=== PATIENT | male | born 1950 | race Caucasian/White ===

== ENCOUNTER 2025-04-05 10:58 | Outpatient (AMB) | payer OTHER, SELFPAY ==
--- NOTE | 2025-04-05 11:00 | MHC.PC.OV ---
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 Associate Professor Of Art History Required: No Allergies No Known Allergies Allergy (Verified 04/05/25 11:02) Medication List - Last Reviewed 04/05/25 by Tanja Hoskins MA aspirin (Adult Low Dose Aspirin) 81 mg PO DAILY hydroxyurea 1,000 mg PO DAILY naproxen sodium (Aleve) 220 mg PO ONCE PRN Tobacco use date assessed: 04/05/25 Fall risk assessment: No Falls in past year Last assessed Fall Risk: 04/05/25 Dental Screening Dental Screen Date: 04/05/25 Did you have a dental visit in the last 12 months?: Yes Did you have a dental problem in the last 6 months where you did not have access to dental care?: No Was dental information given to patient?: Patient has dentist HPI HPI Comments History of Present Illness Details 74 Y/O M with MDD, PTSD, obesity, DM 2, CKD3a, Thrombocyothemia 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 Takes Hydroxyurea, reports most recent plt 500 ; is also on ASA as a result Other: Needs dental extractions and then plates placed Exam Awake alert NAD Scleras nonicteric bilat RRR LS CTAB No edema BLE, hairless 1/2 way down lower legs to ankles Mood and affect appropriate Plan: Refer to Optho Metformin 1000mg po QPM Labs today (ordered on down time sheet as system not working) Tdap today RTO 3 months sAWV sooner PRN Total time spent caring for the patient today was 45 minutes. This includes time spent before the visit reviewing the chart, time spent during the visit, and time spent after the visit on documentation, reviewing laboratory results, diagnostic imaging, medications, performing a medically necessary evaluation, counseling on diagnoses, care coordination, ordering appropriate tests, ordering appropriate medications, review of tests performed by other providers, reporting test results with the patient, communication with other healthcare providers. [facility] Medical History (Updated 04/05/25 @ 12:34 by Pennie Olsen [facility]) Edema Swelling Arthritis Diabetes No pertinent family history Surgical History (Updated 04/05/25 @ 11:17 by Tanja Hoskins MA) Hx of colonoscopy (~2019) No pertinent past surgical history Social History (Updated 04/05/25 @ 11:17 by Tanja Hoskins MA) Household Members: Spouse Housing: House Are you a primary child care attendant school to a significant other at home: Yes Do you presently have visiting nurse or other home services: No Alcohol intake: current Alcohol intake frequency: a few times a month Patient Tobacco Use Status: Never used Tobacco e-Cigarette/Vaping Use: Never Used Second Hand Smoke Exposure: No Substance Use Type: Marijuana service: No Current occupational status: retired Current occupational exposures/hazards: No Cognitive needs: No Hearing needs: No Vision needs: Yes (wear glasses) Questionnaire PHQ-9 Over the last 2 weeks, how often have you been bothered by any of the following problems? 1. Little interest or pleasure in doing things: not at all 2. Feeling down, depressed, or hopeless: not at all 3. Trouble falling or staying asleep, or sleeping too much: not at all 4. Feeling tired or having little energy: not at all 5. Poor appetite or overeating: not at all 6. Feeling bad about yourself - or that you are a failure or have let yourself or your family down: not at all 7. Trouble concentrating on things, such as reading the newspaper or watching television: several days 8. Moving or speaking so slowly that other people could have noticed. Or the opposite - being so fidgety or restless that you have been moving around a lot more than usual: several days 9. Thoughts that you would be better off or of hurting yourself in some way: not at all Total score: 2 Depression Screening Interpretation: Negative Depression Screening Done: Yes 41060 - PHQ-9 Billing: Yes Source: Developed by Drs. Ruben Parikh, Qian Mcmahan, Del Hilton and colleagues, with an educational gretchen from [employer]. Thrive Questionnaire Date Thrive assessed: 04/05/25 I am a: Patient What is your living situation today?: I have a steady place to live Within the past 12 months, did the food you bought not last and you didn't have the money to get more?: Never true Within the past 12 months, did you worry whether your food would run out before you got money to buy more?: Never true Do you have trouble paying for medicines?: No Do you have trouble getting transportation to medical appointments?: No Do you have trouble paying your heating and electricity bill?: Yes Do you have trouble taking care of your child, family member or friend?: Yes Do you have trouble with day-to-day activities such as bathing, preparing meals, shopping, managing finances, etc.?: No Are you currently unemployed and looking for a job?: No Are you interested in more education?: No Please select the resources that you would like help with: Utilities Currently or been in a relationship where the following occur: No concerns reported THRIVE Score: 1 AUDIT C Alcohol Use Questionnaire (AUDIT-C) 1. How often do you have a drink containing alcohol?: Monthly or less 2. How many drinks containing alcohol do you have on a typical day when you are drinking?: 1 or 2 3. How often do you have six or more drinks on one occasion?: Never Total Score: 1 Score Reviewed/Action Taken: Yes GENE-7 AMB Questionnaire GENE-7 Date GENE - 7 assessed: 04/05/25 Feeling nervous, anxious, or on edge: 0 = Not at all Not being able to stop or control worryin = Not at all Worrying too much about different things: 0 = Not at all Trouble relaxin = Not at all Being so restless that it is hard to sit still: 0 = Not at all Becoming easily annoyed or irritable: 0 = Not at all Feeling afraid as if something awful might happen: 0 = Not at all Total GENE-7 score (0-4 normal; 5-9 mild; 10-14 moderate; 15-21 severe): 0 Source: Developed by Drs. Ruben Parikh, Qian Mcmahan, Del Hilton and colleagues, with an educational gretchen from [employer]. GENE-7 Assessment Billing GENE-7 Assessment Tool: GENE-7 Assessment 30710 Physical exam (Primary Care) Vital Signs: Last Vital Signs Temp 97.3 F 04/05/25 11:09 Pulse 60 04/05/25 11:09 Resp 12 04/05/25 11:09 BP 142/78 H 04/05/25 11:09 Pulse Ox 95 04/05/25 11:09 Oxygen Delivery Method Room Air 04/05/25 11:09 BMI result Body Mass Index 32.3 BMI Assessment/Plan discussion: High BMI High, discussed plan: lifestyle Tobacco/Smoking Status: Tobacco use Status Tobacco use date assessed 04/05/25 04/05/25 11:05 Patient Tobacco Use Status Never used Tobacco 04/05/25 11:17 e-Cigarette/Vaping Use Never Used 04/05/25 11:17 PHQ-9: PHQ-9 Score PHQ-9: Total score 2 04/05/25 11:41 Depression Screening Interpretation: Negative Thrive Assessment: Date of Thrive Assessment Date Thrive assessed 04/05/25 04/05/25 11:05 Currently or been in a relationship where the following occur: No concerns reported Results AMB Hemoglobin A1c AMB Hemoglobin A1c 8.7 % Last Edit by Tanja Hoskins MA on 04/05/25 11:36 Immunizations Boostrix Tdap 2.5 Lf unit-8 mcg-5 Lf/0.5 mL intramuscular syringe Performing Provider: PIPER Ma Performing Location: [facility] [place] [facility] Administered by: Tanja Hoskins MA on 04/05/25 11:41 Dose Route Admin Location Dispensed Lot Number Expiration Date [facility] Design Drafter Chief 0.5 mL IM Right Deltoid 0.5 mL [id number] 06/09/27 08181-081-36 Pulse Total Dispensed Waste 0.5 mL 0 % VIS Given Date VIS Provided VIS Publication Date 04/05/25 Single Vaccine 21 Eligibility Eligibility Date Funding Source Not [facility] Eligible 04/05/25 Private Results Reviewed Results Reviewed: Laboratory Last Values Hgb A1c (Clinic) 8.7 % (4.0-6.0) H 04/05/25 11:13 Coding Level of Care Code New Pt Level 4 (84452) Complex EM visit Add On G2211 Diagnoses Encounter to establish care Z76.89 Diabetes mellitus type 2 with complications E11.8 Stage 3a chronic kidney disease due to type 2 diabetes mellitus E11.22; N18.31 Mild episode of recurrent major depressive disorder F33.0 Major depression episode severity: mild Essential thrombocythemia D47.3 Need for Tdap vaccination Z23 Obesity (BMI 30-39.9) E66.9 Additional Codes GENE-7 Assessment Billing - GENE-7 Assessment Tool: GENE-7 Assessment 68378 ([id number]) PHQ-9 - 73395 - PHQ-9 Billing: Yes ([id number]) Assessment & Plan Assessment & Plan (1) Encounter to establish care: Code(s): Z76.89 - Persons encountering health services in other specified circumstances (2) Diabetes mellitus type 2 with complications: Code(s): E11.8 - Type 2 diabetes mellitus with unspecified complications Category: Medical (3) Stage 3a chronic kidney disease due to type 2 diabetes mellitus: Code(s): E11.22 - Type 2 diabetes mellitus with diabetic chronic kidney disease; N18.31 - Chronic kidney disease, stage 3a Category: Medical (4) MDD (major depressive disorder), recurrent episode: Code(s): F33.9 - Major depressive disorder, recurrent, unspecified Category: Medical Qualifiers: Major depression episode severity: mild Qualified Code(s): F33.0 - Major depressive disorder, recurrent, mild (5) Essential thrombocythemia: Code(s): D47.3 - Essential (hemorrhagic) thrombocythemia Category: Medical (6) Need for Tdap vaccination: Code(s): Z23 - Encounter for immunization Category: Medical (7) Obesity (BMI 30-39.9): Code(s): E66.9 - Obesity, unspecified Category: Medical Plan , Orders: Orders AMB Hemoglobin A1c Today E11.8 - Type 2 diabetes mellitus with unspecified complications, Z13.9 - Encounter for screening, unspecified TDaP Immunization Today Z23 - Encounter for immunization Referrals Ophthalmology Referral E11.8 - Type 2 diabetes mellitus with unspecified complications Medications: New metformin 1,000 mg PO DAILY 90 tabs 1RF
[2025-04-05 11:09] VITALS: BP 142/78; PULSE 60; RESP 12; TEMP 36.3; O2SAT 95; BMI 32.3
--- OUTSIDE RECORDS SUMMARY | 2025-04-05 12:30 | XMS_ITS | Clinical Summary ---
Author Organization [facility] Address [address] [place] [address] Care Team Providers Care Multi Line Claims Adjuster Name Role Phone Zachery Dowling MD Primary Care Provider [phone] Allergies No known active allergies Medications Medication Sig Dispensed Refills Start Date End Date Status aspirin EC 81 MG tablet Take 1 tablet (81 mg total) by mouth daily. 0 Active hydroxyurea (HYDREA) 500 MG capsule TAKE 2 CAPSULES BY MOUTH DAILY WITH FOOD ON SATURDAY,SATURDAY, SATURDAY. ONLY TAKE 1 TAKE ONE CAPSULE ON SATURDAY, SATURDAY,SAT AND SATURDAY 128 capsule 11 06/22/2024 Active Active Problems Problem Noted Date Diagnosed Date Essential thrombocytosis 11/23/2019 Thrombocytosis 11/09/2019 Social History Tobacco Use Types Packs/Day Years Used Date Smoking Tobacco: Former Cigarettes 1 20 Pipe Smokeless Tobacco: Never Alcohol Use Standard Drinks/Week Comments Yes 0 (1 standard drink = 0.6 oz pur e alcohol) Sex and Gender Information Value Date Recorded Sex Assigned at Not on file Gender Identity Not on file Sexual Orientation Not on file Job Start Date Occupation Industry Not on file Not on file Not on file Last Filed Vital Signs Vital Sign Reading Time Taken Comments Blood Pressure 137/67 07/28/2024 3:43 PM EDT Pulse 64 07/28/2024 3:43 PM EDT Temperature 36.7 C (98 F) 07/28/2024 3:43 PM EDT Respiratory Rate - - Oxygen Saturation 100% 07/28/2024 3:43 PM EDT Inhaled Oxygen Concentration - - Weight 109.8 kg (242 lb) 07/28/2024 3:43 PM EDT Height 188 cm (6' 2 ) 07/28/2024 3:43 PM EDT Body Mass Index 31.07 07/28/2024 3:43 PM EDT Plan of Treatment Health Maintenance Due Date Last Done Comments Hepatitis C Screening 1950 COVID-19 Vaccine (#1) 1957 Pneumococcal Vaccine (1 of 2 - PCV) 1958 Depression Screening 1964 BMI Counseling 1970 Preventative Health Evaluation 1970 DTap / Tdap / Td (1 - Tdap) 1971 Shingrix-Zoster Vaccine (1 of 2) 1971 Colon Cancer Screening (Colonoscopy) 1997 Fall Risk Assessment 2017 Influenza Vaccine (Season Ended) 2025 RSV Adult > 60+ Yrs or Pregn ant (1 - 1-dose 75+ series) 2027 Hepatitis B Vaccines Aged Out No long er eligible based on patient's age to complete this topic RSV Ped < 20 months Aged Out No longe r eligible based on patient's age to complete this topic Care Teams Multi Line Claims Adjuster Relationship Specialty Start Date End Date Zachery Dowling MD [address] [place] [phone] PCP - General Internal Medicine 11/09/19
== END 2025-04-05 11:43 | disposition home or self-care (01) ==
LOC: HO.HMCFM 10:58
PROVIDERS: PCP Nurse Practitioner Family; Visit Provider Nurse Practitioner Family
DX: Z76.89 Persons encountering health services in other specified circumstances (principal); E11.8 Type 2 diabetes mellitus with unspecified complications; E11.22 Type 2 diabetes mellitus with diabetic chronic kidney disease; N18.31 Chronic kidney disease, stage 3a; F33.0 Major depressive disorder, recurrent, mild; D47.3 Essential (hemorrhagic) thrombocythemia; Z23 Encounter for immunization; E66.9 Obesity, unspecified; Z13.9 Encounter for screening, unspecified

== ENCOUNTER → 2025-04-05 10:58 | Outpatient (BNVA) | payer OTHER, SELFPAY | PROVIDERS: PCP Nurse Practitioner Family; Visit Provider Nurse Practitioner Family | DX: E11.22 Type 2 diabetes mellitus with diabetic chronic kidney disease (principal); F43.10 Post-traumatic stress disorder, unspecified; F33.0 Major depressive disorder, recurrent, mild; N18.31 Chronic kidney disease, stage 3a; D47.3 Essential (hemorrhagic) thrombocythemia; E66.9 Obesity, unspecified; Z23 Encounter for immunization; Z76.89 Persons encountering health services in other specified circumstances; Z79.84 Long term (current) use of oral hypoglycemic drugs | CPT/HCPCS: 83036; 90471; 90715; 96127; 99202 ==

== ENCOUNTER 2025-04-05 11:53 | Outpatient (REF) | payer OTHER, SELFPAY ==
[2025-04-05 14:11] LABS: Alanine Aminotransferase 25 U/L (0-40); Albumin Level 4.5 g/dL (3.5-5.0); Anion Gap 10 (12-20); Aspartate Amino Transferase 29 U/L (5-37); Bilirubin Total 1.4 mg/dL (0.0-1.0); Blood Urea Nitrogen 17 mg/dL (9-16); Calcium 9.2 mg/dL (8.4-10.2); Carbon Dioxide 25 mmol/L (22-29); Chloride 107 mmol/L (96-108); Estimated Glomerular Filt Rate > 60; Glucose Random 170 mg/dL (60-115); Potassium 4.2 mmol/L (3.3-5.1); Sodium 138 mmol/L (135-145); Triglycerides 158 mg/dL (<150)
[2025-04-05 14:12] LABS: Alkaline Phosphatase 53 U/L (39-117); Cholesterol 133 mg/dL (<200); HDL Cholesterol 31 mg/dL (>40); LDL Cholesterol Calculated 71 mg/dL (<100)
[2025-04-05 14:31] LABS: Thyroid Stimulating Hormone 2.68 uIU/mL (0.32-4.0)
[2025-04-05 14:35] LABS: Prostate Specific Antigen 0.61 ng/mL (<0.05-4.0); Vitamin B12 829 pg/mL (200-900)
[2025-04-05 19:50] LABS: Creatinine Urine 245.64 mg/dL; Microalbum/Creatinine Ratio Ur 5.6 ug/mg cr (<30)
== END 2025-04-05 11:54 | disposition home or self-care (01) ==
LOC: HO.WFDLDS 11:53
PROVIDERS: Visit Provider Nurse Practitioner Family
DX: E11.8 Type 2 diabetes mellitus with unspecified complications (principal); Z13.9 Encounter for screening, unspecified
CPT/HCPCS: 36415; 80053; 80061; 82043; 82570; 82607; 84153; 84443

== ENCOUNTER 2025-06-09 09:55 | Outpatient (REF) | payer OTHER, SELFPAY ==
--- OUTSIDE RECORDS SUMMARY | 2025-06-09 11:35 | XMS_ITS ---
Author Name [facility] Organization Unknown Care Team Organization Name Specialty Phone Email Start Date End Da te [facility] Shahram Rondon Primary Care 08/21/202205/14
[2025-06-09 14:33] LABS: Hematocrit 37.7 % (42.0-52.0); Hemoglobin 12.4 g/dl (14.0-18.0); Mean Corpuscular HGB Conc 32.9 g/dl (31.0-36.0); Mean Corpuscular Hemoglobin 34.2 pg (27.0-33.0); Mean Corpuscular Volume 103.9 fL (80.0-98.0); NRBC Abs Auto 0.020 X10*3/uL (0.0-0.012); NRBC Pct Auto 0.2 /100WBC (0.0-0.2); Platelet Count 511 X10*3/uL (160-400); Red Blood Count 3.63 X10*6/uL (4.60-5.80); White Blood Count 12.4 X10*3/uL (4.8-10.8)
[2025-06-09 15:12] LABS: Alanine Aminotransferase 30 U/L (0-40); Albumin Level 4.6 g/dL (3.5-5.0); Alkaline Phosphatase 71 U/L (39-117); Anion Gap 12 (12-20); Aspartate Amino Transferase 41 U/L (5-37); Blood Urea Nitrogen 16 mg/dL (9-16); Calcium 9.2 mg/dL (8.4-10.2); Carbon Dioxide 25 mmol/L (22-29); Chloride 104 mmol/L (96-108); Estimated Glomerular Filt Rate 58; Potassium 4.8 mmol/L (3.3-5.1); Sodium 136 mmol/L (135-145); Total Protein 7.6 g/dL (6.5-8.0)
== END 2025-06-09 09:56 | disposition home or self-care (01) ==
LOC: HO.WFDLDS 09:55
PROVIDERS: PCP Nurse Practitioner Family; Visit Provider Nurse Practitioner Family
DX: Z01.818 Encounter for other preprocedural examination (principal); E11.8 Type 2 diabetes mellitus with unspecified complications; D47.3 Essential (hemorrhagic) thrombocythemia; Z79.82 Long term (current) use of aspirin; Z79.84 Long term (current) use of oral hypoglycemic drugs; Z79.2 Long term (current) use of antibiotics; Z79.899 Other long term (current) drug therapy
CPT/HCPCS: 36415; 80053; 85027; 99212

== ENCOUNTER 2025-06-09 09:55 | Outpatient (AMB) | payer OTHER, SELFPAY ==
--- OUTSIDE RECORDS SUMMARY | 2024-07-28 15:40 | XMS_ITS | Encounter Summary ---
Author Organization [employer] [facility] Address [address] [place] [address] Care Team Providers Care Airport Traffic Controller Name Role Phone Zachery Dowling MD Primary Care Provider [phone] Encounter Details Date Type Department Care Team (Late st Contact Info) Description 07/28/2024 3:40 PM EDT Hospital Encounter TH HISTORIC ENCOUNTERS EASTERN CONVERSION ONLY Shahram Rondon MD [address] [place] [phone] Social History Tobacco Use Types Packs/Day [...] hemoglobin 14.9 with MCV 96, and platelet ,000. He underwent a bone marrow aspirate and [...] increased the Hydrea dose to 1000 mg Dvygtq-Mifryacva-Bbmoee and 500 mg the other days and he tolerated therapy well without side effects. He is a garcia and reports frequent easy bleeding on aspirin 81 mg daily. A CBC on 03/24/2020 showed a WBC 11.0 with ANC 7.7, hemoglobin 13.8 with MCV 103, and platelet wxqbe781,000. A CBC on 05/30/2020 showed a WBC 9.3 with ANC 6.4, hemoglobin 14.3 with MCV 109, and platelet count 572,000. A CBC on 09/19/2020 showed a WBC 10.8 with ANC 7.5, hemoglobin 13.9 with MCV 108, and platelet hmbip094,000. We increased the Hydrea dose to 1000 [...] hemoglobin 14.2 with MCV 107, and platelet nqueu458,000. A CBC on 07/04/2021 showed a WBC 12.0 with ANC 8.9, hemoglobin 14.2 with MCV 111, and platelet piqqv491,000. A CBC on 10/27/2021 showed a WBC [...] Care Team (Late st Contact Info) Description 07/27/2025 1:30 PM EDT Office Visit [facility] Hematology Oncology [address] [place] [phone] Shahram Rondon MD [address] [place] [phone] documented as of this encounter Procedures Procedure Name Priority Date/Time Associated Diagnosis Comments ..MISCELLANEOUS REFERENCE LAB TEST 07/28/2024 documented in this encounter Results * Miscellaneous reference lab test (07/28/2024) us Provider Onbase LAB BLOOD ORDERABLES Final Re sult documented in this encounter Visit Diagnoses Not on filedocumented in this encounter Care Teams Airport Traffic Controller Relationship Specialty Start Date End Date Zachery Dowling MD [address] [place] [phone] PCP - General Internal Medicine 02/26/18 documented as of this encounter
--- NOTE | 2025-06-09 09:57 | A.OFFPC_ITS ---
Vital Signs 06/09/25 10:03 Height 6 ft 1 in Weight 241 lb BMI 31.8 BP 138/74 Blood Pressure Location Lt brachial Position Sitting Respiration 12 Pulse 71 Pulse Source Pulse Oximeter Temp 97.2 F Temp Source Oral Pulse Oximetry (%) 99 Oxygen Delivery Method Room Air Intake Visit Reasons: pre op dental surgery Intake Note: Pre op for dental surgery Hand Spinner Required: No Allergies No Known Allergies Allergy (Verified 06/09/25 09:58) Medication List - Last Reconciled 06/09/25 by DANNIELLE Ma- aspirin (Adult Low Dose Aspirin) 81 mg PO DAILY hydroxyurea 1,000 mg PO DAILY metformin 1,000 mg PO DAILY naproxen sodium (Aleve) 220 mg PO ONCE PRN penicillin V potassium 500 mg PO BID Tobacco use date assessed: 06/09/25 Fall risk assessment: No Falls in past year Last assessed Fall Risk: 06/09/25 Dental Screening Dental Screen Date: 06/09/25 Did you have a dental visit in the last 12 months?: Yes Did you have a dental problem in the last 6 months where you did not have access to dental care?: No Was dental information given to patient?: Patient has dentist HPI HPI Comments History of Present Illness Details 74 Y/O M with MDD, PTSD, obesity, DM 2, CKD3a, Thrombocyothemia 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 Surgery Type: Dental plates and extractions Anesthesia Type: local Surgeon: Jerryurgedonna [facility] Date: TBD based on clearance Any past surgical procedures: Y Any complications from anesthesia or in post-op period: N ASA or NSAID Use: ASA and Naproxen Current smoker: N Alcohol use: N Drug use: N METs: > 4 climb flight of stairs, golf, walk, yardwork Medical history: Asthma N COPD N Obesity bmi 31.8 Diabetes Y IN < 6 weeks, unstable angina, CHF, severe valve disease N Testing CBC/CMP as below Dm2 Metformin 1000mg causing GI upset, taking as directed, A1c 8.7% 03/2025 Thrombocyothemia - Dr Alcon Cline, visit q 3 months, last March 2025. Takes Hydroxyurea, reports most recent plt 500 ; is also on ASA as a result Exam Awake alert NAD Scleras nonicteric bilat RRR LS CTAB No edema BLE, hairless 1/2 way down lower legs to ankles Mood and affect appropriate Plan: Patient is medically cleared to proceed w/ dental work. Dental form completed, to be faxed back along w/ my note and labs. He should cont to take his ASA, limit Naproxen use; hold Metformin day of surgery and do not resume until normal food intake and hydration status. Currently on Pen VK for dental infection, for 10 days, he should complete this before proceeding. RTO as scheduled, sooner as needed. Total time spent caring for the patient today was 40 minutes. This includes time spent before the visit reviewing the chart, time spent during the visit, and time spent after the visit on documentation, reviewing laboratory results, diagnostic imaging, medications, performing a medically necessary evaluation, counseling on diagnoses, care coordination, ordering appropriate tests, ordering appropriate medications, review of tests performed by other providers, reporting test results with the patient, communication with other healthcare providers. [facility] Medical History (Updated 05/05/25 @ 07:06 by Pennie Olsen, [facility]) Arthritis Diabetes Edema No pertinent family history Swelling Surgical History (Updated 04/05/25 @ 11:17 by Tanja Hoskins MA) Hx of colonoscopy (~2018) No pertinent past surgical history Social History (Updated 04/05/25 @ 11:17 by Tanja Hoskins MA) Household Members: Spouse Both parents involved: No Caregiver staying overnight: No Housing: House Are you a primary medical care evaluation specialist to a significant other at home: Yes Do you presently have visiting nurse or other home services: No 75 years or older and lives alone: No Alcohol intake: current Alcohol intake frequency: a few times a month Patient Tobacco Use Status: Never used Tobacco e-Cigarette/Vaping Use: Never Used Second Hand Smoke Exposure: No Substance Use Type: Marijuana service: No Current occupational status: retired Current occupational exposures/hazards: No Cognitive needs: No Hearing needs: No Vision needs: Yes (wear glasses) Questionnaire Thrive Questionnaire Date Thrive assessed: 04/05/25 I am a: Patient What is your living situation today?: I have a steady place to live Within the past 12 months, did the food you bought not last and you didn't have the money to get more?: Never true Within the past 12 months, did you worry whether your food would run out before you got money to buy more?: Never true Do you have trouble paying for medicines?: No Do you have trouble getting transportation to medical appointments?: No Do you have trouble paying your heating and electricity bill?: Yes Do you have trouble taking care of your child, family member or friend?: Yes Do you have trouble with day-to-day activities such as bathing, preparing meals, shopping, managing finances, etc.?: No Are you currently unemployed and looking for a job?: No Are you interested in more education?: No Please select the resources that you would like help with: Utilities Currently or been in a relationship where the following occur: No concerns reported THRIVE Score: 1 GENE-7 AMB Questionnaire GENE-7 Date GENE - 7 assessed: 04/05/25 Source: Developed by Drs. Ruben Parikh, Qian Mcmahan, Del Hilton and colleagues, with an educational gretchen from [employer]. Physical exam (Primary Care) Vital Signs: Last Vital Signs Temp 97.2 F 06/09/25 10:03 Pulse 71 06/09/25 10:03 Resp 12 06/09/25 10:03 BP 138/74 06/09/25 10:03 Pulse Ox 99 06/09/25 10:03 Oxygen Delivery Method Room Air 06/09/25 10:03 BMI result Body Mass Index 31.8 Tobacco/Smoking Status: Tobacco use Status Tobacco use date assessed 06/09/25 06/09/25 10:00 Patient Tobacco Use Status Never used Tobacco 06/09/25 10:00 e-Cigarette/Vaping Use Never Used 06/09/25 10:00 Thrive Assessment: Date of Thrive Assessment Date Thrive assessed 04/05/25 06/09/25 10:00 Currently or been in a relationship where the following occur: No concerns reported Results Reviewed Results Reviewed: RUN: 06/09/25 1633 PAGE 1 [facility] [address] [place] [id number] Public Utilities Sales Representative: Jeremy Cotto M.D. Specimen Inquiry Name: Randell Edwards Age/Sex: 74/M : 1950 Unit#: [id number] Attend Dr: Pennie Olsen [facility] Re06/09/25 Status: REG REF Location: [facility] Disch: SPEC : [id number] EDWIGE: 06/09/25 STATUS: COMP REQ : [id number] RECD: 06/09/[address] [facility] [address]: Pennie Olsen [facility] COMP: 06/09/25 ENTERED: 06/09/[address] [facility] [address]: ORDERED: CBC No Diff Test Result Flag Reference WBC 12.4 H 4.8-10.8 X10*3/uL RBC 3.63 L 4.60-5.80 X10*6/uL HGB 12.4 L 14.0-18.0 g/dl HCT 37.7 L 42.0-52.0 % MCV 103.9 H 80.0-98.0 fL MCH 34.2 H 27.0-33.0 pg MCHC 32.9 31.0-36.0 g/dl RDW 14.8 11.0-16.0 % PLT 511 H 160-400 X10*3/uL MPV 10.1 9.4-12.4 fL NRBC Pct Auto 0.2 0.0-0.2 /100WBC NRBC Abs Auto 0.020 H 0.0-0.012 X10*3/uL RUN: 06/09/25 3263 PAGE 1 [facility] [address] [place] [id number] Public Utilities Sales Representative: Jeremy Cotto M.D. Specimen Inquiry Name: Randell Edwards Age/Sex: 74/M : 1950 Unit#: [id number] Attend Dr: Pennie Olsen Re06/09/25 Status: REG REF Location: [facility] Disch: SPEC : [id number] EDWIGE: 06/09/25 STATUS: COMP REQ : [id number] RECD: 06/09/[address]: Pennie Olsen COMP: 06/09/25-1511 ENTERED: 06/09/[address]: ORDERED: CMP Test Result Flag Reference Sodium 136 135-145 mmol/L Potassium 4.8 3.3-5.1 mmol/L CL 104 96-108 mmol/L CO2 25 22-29 mmol/L Gap 12 12-20 BUN 16 9-16 mg/dL Creat 1.22 0.5-1.4 mg/dL eGFR 58 Chronic Kidney Disease: Estimated GFR < 60 mL/min/1.73m2 Severe Kidney Disease: Estimated GFR < 15 mL/min/1.73m2 Glucose, Random 149 H 60-115 mg/dL CA 9.2 8.4-10.2 mg/dL Total Bili 1.6 H 0.0-1.0 mg/dL AST (GOT) 41 H 5-37 U/L ALT (GPT) 30 0-40 U/L Protein, Total 7.6 6.5-8.0 g/dL Alb 4.6 3.5-5.0 g/dL Alk Phos 71 39-117 U/L Coding Level of Care Code Est Pt Level 5 (07289) Complex EM visit Add On G2211 Diagnoses Encounter for preoperative dental examination Z01.818 Diabetes mellitus type 2 with complications E11.8 Essential thrombocythemia D47.3 Assessment & Plan Assessment & Plan (1) Encounter for preoperative dental examination: Code(s): Z01.818 - Encounter for other preprocedural examination Plan: Patient is medically cleared to proceed w/ dental work. Dental form completed, to be faxed back along w/ my note and labs. He should cont to take his ASA, limit Naproxen use; hold Metformin day of surgery and do not resume until normal food intake and hydration status. Currently on Pen VK for dental infection, for 10 days, he should complete this before proceeding. (2) Diabetes mellitus type 2 with complications: Code(s): E11.8 - Type 2 diabetes mellitus with unspecified complications Category: Medical (3) Essential thrombocythemia: Code(s): D47.3 - Essential (hemorrhagic) thrombocythemia Category: Medical Plan . Orders: Orders Complete Blood Count no Diff Today D47.3 - Essential (hemorrhagic) thrombocythemia, E11.8 - Type 2 diabetes mellitus with unspecified complications, Z01.818 - Encounter for other preprocedural examination Comprehensive Met. Panel Today D47.3 - Essential (hemorrhagic) thrombocythemia, E11.8 - Type 2 diabetes mellitus with unspecified complications, Z01.818 - Encounter for other preprocedural examination Medications: New metformin ER (Glucophage XR) 1,000 mg (2 x 500 mg) PO DAILY 180 tabs 0RF Discontinued metformin Discontinued Reason: Doctor's Order 1,000 mg PO DAILY 90 tabs 1RF
[2025-06-09 10:03] VITALS: BP 138/74; PULSE 71; RESP 12; TEMP 36.2; O2SAT 99; BMI 31.8
--- OUTSIDE RECORDS SUMMARY | 2025-06-09 10:38 | XMS_ITS | Clinical Summary ---
Author Organization [facility] [place] [address] Phone Care Team Providers Care Egg Grader Name Role Phone Zachery Dowling MD Primary Care Provider [phone] Allergies No known active allergies Medications naproxen sodium 220 mg capsule Take 1 Tab by mouth every morning. Active aspirin 81 mg EC tablet Take 1 tablet (81 mg total) by mouth daily. Active hydroxyurea (HYDREA) 500 mg capsule TAKE 2 CAPSULES BY MOUTH DAILY WITH FOOD ON SATURDAY,, SATURDAY. ONLY TAKE 1 TAKE ONE CAPSULE ON SATURDAY, SATURDAY,SAT AND Saturday06/22/2024 Active Active Problems Problem Noted Date Diagnosed Date Essential thrombocytosis (CMS/HCC V24, [facility] V 28) 11/23/2019 Thrombocytosis 03/12/2018 Resolved Problems Problem Noted Date Diagnosed Date Resolved Date Diabetic neuropathy (CMS/HCC V24, CMS/HCC V28) 04/04/2018 09/18/2024 Tick bite 04/04/2018 09/18/2024 Overview (09/07/2024): history DM (diabetes mellitus), type 2 with neurological complications (CMS/HCC V24, CMS/HCC V28) 03/12/2018 09/18/2024 Neutrophilia 03/12/2018 09/18/2024 Polycythemia 03/12/2018 09/18/2024 Encounters Date Type Department Care Team Description 04/27/2025 1:15 PM EDT Office Visit [facility] Hematology Oncology [address] [place] [address] Shahram Rondon MD Essential thrombocytosis ([facility] V24, [facility] V28) (Primary Dx) from Last 3 Months Medical History Medical History Date Comments Polycythemia 03/12/2018 DX:Polycythemia Neutrophilia 03/12/2018 DX:Neutrophilia Thrombocytosis 03/12/2018 DX:Thrombocytosi s DM (diabetes mellitus), type 2 with neurological complications ([facility] V24, [facility] V28) 03/12/2018 DX:DM (diabetes mellitus), t ype 2 with neurological complications (HCC) Diabetic neuropathy ([facility] V24, [facility] V28) 04/04/2018 DX:Diabetic neuropathy (HCC) Tick bite 04/04/2018 DX:Tick bite; CO MMENT: history Diabetic neuropathy ([facility] V24, [facility] V28) 04/04/2018 DX:Diabetic neuropathy (HCC) DM (diabetes mellitus), type 2 with neurological complications ([facility] V24, [facility] V28) 03/12/2018 DX:DM (diabetes mellitus), t ype 2 with neurological complications (HCC) Polycythemia 03/12/2018 DX:Polycythemia Neutrophilia 03/12/2018 DX:Neutrophilia Thrombocytosis 03/12/2018 DX:Thrombocytosi s Tick bite 04/04/2018 DX:Tick bite Social History Tobacco Use Types Packs/Day Years Used Date Smoking Tobacco: Former Cigarettes Smokeless Tobacco: Never Tobacco Cessation:Counseling Given: Not Answered Alcohol Use Standard Drinks/Week Comments Yes 0 (1 standard drink = 0.6 oz pur e alcohol) Sex and Gender Information Value Date Recorded Sex Assigned at Not on file Legal Sex Male 10:39 AM EST Gender Identity Not on file Sexual Orientation Not on file Obstetrics History Last Filed Vital Signs Vital Sign Reading Time Taken Comments Blood Pressure 135/71 04/27/2025 1:09 PM EDT Pulse 72 04/27/2025 1:09 PM EDT Temperature 36.3 C (97.3 F) 04/27/2025 1:09 PM EDT Respiratory Rate - - Oxygen Saturation 99% 04/27/2025 1:09 PM EDT Inhaled Oxygen Concentration - - Weight 110 kg (243 lb) 04/27/2025 1:09 PM EDT Height 188 cm (6' 2 ) 10/28/2024 2:49 PM EST Body Mass Index 31.2 10/28/2024 2:49 PM EST Plan of Treatment Upcoming Encounters Date Type Department Care Team (Late st Contact Info) Description 07/27/2025 1:30 PM EDT Office Visit [facility] Hematology Oncology [address] [place] [address] Shahram Rondon MD [address] [place] [address] Health Maintenance Due Date Last Done Comments Zoster Vaccines (1 of 2) 1971 Pneumococcal Vaccine: 50+ Years (1 of 1 - PCV) 2002 Abdominal Aortic Aneurysm (AAA) Screen 09/11/2022 Cholesterol Screening (Lipid Panel) 09/11/2022 Colorectal Cancer Screening: Colonoscopy 09/11/2022 Falls Risk Assessment 09/11/2022 Hepatitis C Screening 09/11/2022 Medicare Annual Wellness Visit 09/11/2022 Social Influencers of Health Screening 09/11/2022 COVID-19 Vaccine (4 - 2023-2 5 season) 2024 10/02/2021, 02/17/2021, 01/27/2021 Depression Screening 10/14/2024 Influenza Vaccine (#1) 2025 RSV Immunization Adult Patients (1 - 1-dose 75+ series) 2027 DTaP,Tdap,and Td Vaccines (2 - Td or Tdap) 04/05/2035 04/05/2025 HIB Vaccines Aged Out No longer eligi ble based on patient's age to complete this topic HPV Vaccines Aged Out No longer eligi ble based on patient's age to complete this topic Hepatitis A Vaccines Aged Out No long er eligible based on patient's age to complete this topic Hepatitis B Vaccines Aged Out No long er eligible based on patient's age to complete this topic IPV Vaccines Aged Out No longer eligi ble based on patient's age to complete this topic MMR Vaccines Aged Out No longer eligi ble based on patient's age to complete this topic Meningococcal ACWY Vaccine Aged Out N o longer eligible based on patient's age to complete this topic Meningococcal B Vaccine Aged Out No l onger eligible based on patient's age to complete this topic RSV Immunization Patients Under 20 months Aged Out No longer eligible b ased on patient's age to complete this topic Varicella Vaccines Aged Out No longer eligible based on patient's age to complete this topic Procedures Procedure Name Priority Date/Time Associated Diagnosis Comments CBC WITH AUTO DIFFERENTIAL Routine 04/26/2025 8:43 AM EDT Essential thrombocytosis ([facility] V24, [facility] V28) CBC AND DIFFERENTIAL Routine 04/26/2025 8:43 AM EDT Essential thrombocytosis ([facility] V24, [facility] V28) from Last 3 Months Results * (ABNORMAL) CBC auto differential (04/26/2025 8:43 AM EDT) WBC 9.5 4.8 - 10.8 K/mcL LAB HEMETOLOGY METHOD 04/26/2025 11:45 AM [facility] RBC 3.70(L) 4.50 - 5.50 M/mcL LAB HEMETOLOGY METHOD 04/26/2025 11:45 AM [facility] Hemoglobin 12.5(L) 13.5 - 17.5 g/dL LAB HEMETOLOGY METHOD 04/26/2025 11:45 AM [facility] Hematocrit 37.7(L) 42.0 - 54.0 % LAB HEMETOLOGY METHOD 04/26/2025 11:45 AM [facility] MCV 103.0(H) 79.0 - 98.0 FL LAB HEMETOLOGY METHOD 04/26/2025 11:45 AM [facility] MCH 34.2(H) 27.0 - 32.0 pcg LAB HEMETOLOGY METHOD 04/26/2025 11:45 AM [facility] MCHC 33.2 32.0 - 37.0 g/dL LAB HEMETOLOGY METHOD 04/26/2025 11:45 AM [facility] RDW 14.5 11.0 - 15.0 % LAB HEMETOLOGY METHOD 04/26/2025 11:45 AM [facility] Platelets 484(H) 130 - 400 K/mcL LAB HEMETOLOGY METHOD 04/26/2025 11:45 AM [facility] MPV 10.3 7.0 - 11.0 FL LAB HEMETOLOGY METHOD 04/26/2025 11:45 AM [facility] NRBC 0.0 <1.0 % LAB HEMETOLOGY METHOD 04/26/2025 11:45 AM [facility] NRBC Absolute 0.00 <0.10 K/mcL LAB HEMETOLOGY METHOD 04/26/2025 11:45 AM [facility] Neutrophils Relative 69.8 % LAB HEMETOLOGY METHOD 04/26/2025 11:45 AM [facility] Lymphocytes Relative 15.5 % LAB HEMETOLOGY METHOD 04/26/2025 11:45 AM [facility] Monocytes Relative 7.5 % LAB HEMETOLOGY METHOD 04/26/2025 11:45 AM [facility] Eosinophils Relative 3.7 % LAB HEMETOLOGY METHOD 04/26/2025 11:45 AM [facility] Basophils Relative 1.5 % LAB HEMETOLOGY METHOD 04/26/2025 11:45 AM [facility] Immature Granulocytes Relative 2.0 % LAB HEMETOLOGY METHOD 04/26/2025 11:45 AM [facility] Neutrophils Absolute 6.62 1.50 - 7.00 K/mcL LAB HEMETOLOGY METHOD 04/26/2025 11:45 AM [facility] Lymphocytes Absolute 1.47 1.00 - 5.00 K/mcL LAB HEMETOLOGY METHOD 04/26/2025 11:45 AM [facility] Monocytes Absolute 0.71 0.20 - 1.00 K/mcL LAB HEMETOLOGY METHOD 04/26/2025 11:45 AM EDT [facility] Eosinophils Absolute 0.35 0.00 - 0.50 K/[facility] LAB HEMETOLOGY METHOD 04/26/2025 11:45 AM EDT [facility] Basophils Absolute 0.14 0.00 - 0.20 K/[facility] LAB HEMETOLOGY METHOD 04/26/2025 11:45 AM EDT [facility] Immature Granulocytes Absolute 0.19(H) 0.00 - 0.03 K/[facility] LAB HEMETOLOGY METHOD 04/26/2025 11:45 AM EDT [facility] Blood Venous blood specimen / Unknown Venipuncture / Unknown 04/26/2025 8:43 AM EDT 04/26/2025 11:29 AM EDT us Shahram Rondon MD LAB BLOOD ORDERABLES Final Result [facility] [address] [address], from Last 3 Months Insurance MEDICAID - [place] [facility] MEDICARE [employer]AGE Care Teams Egg Grader Relationship Specialty Start Date End Date Zachery Dowling MD [address] [place] [phone] PCP - General Internal Medicine 02/26/18
--- OUTSIDE RECORDS SUMMARY | 2025-06-09 10:38 | XMS_ITS | Clinical Summary ---
Author Organization [facility] Address [address] [place] [address] Care Team Providers Care Administrative Services Director Name Role Phone Zachery Dowling MD Primary Care Provider [phone] Allergies No known active allergies Medications Medication [...] 1997 Fall Risk Assessment 2017 Influenza Vaccine (#1) 2025 RSV Adult > 60+ Yrs or Pregn ant (1 - 1-dose 75+ series) 2027 Hepatitis B Vaccines Aged Out No long er eligible based on patient's age to complete this topic RSV Ped < 20 months Aged Out No longe r eligible based on patient's age to complete this topic Care Teams Administrative Services Director Relationship Specialty Start Date End Date Zachery Dowling MD [address] [place] [phone] PCP - General Internal Medicine 11/09/19
== END 2025-06-09 10:20 | disposition home or self-care (01) ==
LOC: HO.HMCFM 09:56
PROVIDERS: PCP Nurse Practitioner Family; Visit Provider Nurse Practitioner Family
DX: E11.8 Type 2 diabetes mellitus with unspecified complications (principal); D47.3 Essential (hemorrhagic) thrombocythemia; Z01.818 Encounter for other preprocedural examination

== ENCOUNTER 2025-07-02 07:58 | Outpatient (AMB) | payer OTHER, SELFPAY ==
--- OUTSIDE RECORDS SUMMARY | 2024-07-28 15:40 | XMS_ITS | Encounter Summary ---
Author Organization [employer] [facility] Address [address] [place] [address] Care Team Providers Care Section Crews Activities Clerk Name Role Phone Zachery Dowling MD Primary Care Provider [phone] Encounter Details Date Type Department Care Team (Late st Contact Info) Description 07/28/2024 3:40 PM EDT Hospital Encounter TH HISTORIC ENCOUNTERS EASTERN CONVERSION ONLY Shahram Rondon MD [address] [place] [phone] Social History Tobacco Use Types Packs/Day [...] hemoglobin 14.9 with MCV 96, and platelet ywurx508,000. He underwent a bone marrow aspirate and [...] increased the Hydrea dose to 1000 mg Jzswev-Skdpgjnku-Vgbbmp and 500 mg the other days and he tolerated therapy well without side effects. He is a garcia and reports frequent easy bleeding on aspirin 81 mg daily. A CBC on 03/24/2020 showed a WBC 11.0 with ANC 7.7, hemoglobin 13.8 with MCV 103, and platelet hjbcy929,000. A CBC on 05/30/2020 showed a WBC 9.3 with ANC 6.4, hemoglobin 14.3 with MCV 109, and platelet count 572,000. A CBC on 09/19/2020 showed a WBC 10.8 with ANC 7.5, hemoglobin 13.9 with MCV 108, and platelet eocwo901,000. We increased the Hydrea dose to 1000 [...] hemoglobin 14.2 with MCV 111, and platelet kclix943,000. A CBC on 10/27/2021 showed a WBC [...] Description 07/27/2025 1:30 PM EDT Office Visit [facility] Hematology Oncology [address] [place] [phone] Shahram Rondon MD [address] [place] [phone] documented as of this encounter Procedures Procedure Name Priority Date/Time Associated Diagnosis Comments ..MISCELLANEOUS REFERENCE LAB TEST 07/28/2024 documented in this encounter Results * Miscellaneous reference lab test (07/28/2024) us Provider Onbase LAB BLOOD ORDERABLES Final Re sult documented in this encounter Visit Diagnoses Not on filedocumented in this encounter Care Teams Section Crews Activities Clerk Relationship Specialty Start Date End Date Zachery Dowling MD [address] [place] [phone] PCP - General Internal Medicine 02/26/18 documented as of this encounter
--- NOTE | 2025-07-02 08:01 | AM.OFFVISMDC ---
Intake Vital Signs 07/02/25 08:06 07/02/25 08:32 Height 6 ft 1 in Weight 244 lb BMI 32.2 BP 154/78 H 138/68 Blood Pressure Location Lt brachial Lt brachial Position Sitting Sitting Respiration 13 Pulse 63 Pulse Source Pulse Oximeter Temp 97.1 F Temp Source Oral Pulse Oximetry (%) 99 Oxygen Delivery Method Room Air Intake Visit Reasons: CPE Intake Note: AWV. Patient is still having diarrhea since the med change. Panel Assembler Required: No Allergies No Known Allergies Allergy (Verified 07/02/25 08:17) Medication List - Last Reconciled 07/02/25 by Pennie Olsen, [employer]ICATION PLANT OPERATOR- aspirin (Adult Low Dose Aspirin) 81 mg PO DAILY hydroxyurea 1,000 mg PO DAILY metformin ER (Glucophage XR) 1,000 mg (2 x 500 mg) PO DAILY naproxen sodium (Aleve) 220 mg PO ONCE PRN Do you need a note to return to daycare/school/sports/work: No HPI HPI Comments History of Present Illness Details Here today for AWV. The Medicare Annual Wellness Visit (AWV) is a yearly appointment with a health professional to identify health risks and help reduce them and to create or update a personalized prevention plan. During a Medicare AWV, health professionals should also review any current opioid prescriptions, detect any cognitive impairment, and establish or update medical and family history. 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 Colon: 2019 Vaccines: Tdap 03/2025; Declined Flu, Shingles, Pneumococcal. AAA screen: NA EKG: NSR DIABETIC EYE EXAM 07/21/24 DOCUMENTS NONPROLIFERATIVE DIABETIC RETINOPATHY WITH MACULAR EDEMA BILAT, CATARACTS BILAT (CONSIDER SURGERY) [place] of Care: Heme Dr Alcon Cline next appt Optho - referral placed to Dr Painter for DM Eye exam Visual Acuity: wears glasses, eye exam 06/2025 Hearing Screening: partner says hes [place]; doesnt bother him. Wants hearing test; referral placed to [facility] [place] [facility] ACP: does not have HCP, form given today, wants it to be his dtr; MOLST completed today, DNR w/ no resus. efforts. Dietary/Nutrition/Exercise Edu provided: Y During the course of the visit the patient was educated and counseled about appropriate screening and preventative services. Patient instructions were provided to the patient in written or electronic format. I have reviewed and verified the above information. History of Present Illness The patient is a 74 year old male presenting with an annual wellness visit and management of multiple chronic conditions. 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 Non-proliferative Diabetic Retinopathy: - Past diabetic eye exam in July 2024. Reports had one done 3 weeks ago, will get a copy. - Cataracts identified; recently received new glasses. Obesity: - BMI at 32.2. Major Depressive Disorder and PTSD: - Known diagnosis; no current medication. Thrombocythemia: - Managed on aspirin and hydroxyurea. - Heme MD Back pain w/ BLE sciaitica for years. - Morning pain relieved with movement and warmth; rare medication use Aleve once per week -Hot showers Hearing loss: - Hearing issues noted by partner; referral for audiology planned. Social History - Wakes early, typically between 2:00 to 3:00 AM. - Manages daily activities and outings according to his health status. - Works for a few hours daily with limitations. 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 Health Maintenance - Brand Mgr visit completed recently; new glasses issued. - Future A1c check planned; reminder of a previous check on the of last month. - Cardiovascular status favorable with normal EKG findings. - Hearing exam referral made to the audiology department. - Flu shot offered but declined by the patient. - Shingles and pneumococcal vaccines offered but declined. Review of Systems - Gastrointestinal: Reports diarrhea related to medication. - Musculoskeletal: Reports occasional morning back pain. - Hematological: Reports management for thrombocythemia. - Ophthalmic: Reports early-stage cataracts; recent eye exam noted. - Neurological: Denies prosthetic issues, no general neuropathy. - Auditory: Reports difficulty in hearing from partners? observations. Physical Exam General: Well developed, well nourished, in no acute distress. Appears stated age. Head: Normocephalic, atraumatic. Eyes: Pupils are equal, round and reactive to light and accommodation. Conjunctivae are clear. Vision grossly normal. Ears: TMs clear AU, EACS WNL. Some wax present, ears to be flushed. Nose: Patent, without discharge. Neck: Supple, no adenopathy or thyromegaly. Breast: Edu on SBE Lungs: Clear to auscultation bilaterally. No rales, rhonchi or wheeze noted. Good air flow in all gary. Heart: Regular rate and rhythm. No murmurs, click, rubs or gallops are noted. EKG shows normal sinus rhythm. Abdomen: Bowel sounds present in all quadrants. The abdomen is soft, nontender, with no masses or organomegaly noted. Ventral hernia present : Deferred. Reviewed KARLY & recommendations Pulses: Peripheral pulses are equal and palpable bilaterally. Extremities: No clubbing, cyanosis nor edema is noted. Gouty/arthritic changes to bilat great toes. Normal monofilament bilat, abnormal vibratory sensation bilat L>R, hairless 1/2 way down, + varicose veins, skin intact, trace edema L>R Neurologic: Gait and station normal. Cranial Nerves 2-12 intact. Motor strength grossly symmetrical and intact. No sensory loss. Balance normal. Skin: No rashes, ulcers, or lesions noted. Turgor is good. Skin color is good. Hair and nails are without abnormalities. Several moles and age spots noted on trunk. Psych: Normal eye contact, affect and mood appropriate, and normal interactions. Patient is alert and appropriate to context. Discussion Notes I reviewed the patient's management of type 2 diabetes with chronic kidney disease stage 3A, emphasizing the importance of frequent monitoring of renal function and the adjustment of metformin timing to manage associated diarrhea. I discussed the results of the recent EKG and ensured that he understands the significance of normal findings. We explored the need for continued ophthalmology follow-up in light of recent cataract development and a new prescription for eyeglasses. I informed the patient of the need for auditory checks and placed a referral to audiology. I broached the advantages of flu and pneumococcal vaccinations, which the patient declined. We addressed the patient's infrequent use of pain medications for morning back pain and his partner's observations regarding potential hearing loss. We also reviewed plans for potential further diagnostics if his conditions change. Patient was given time to ask questions. All questions were answered to their satisfaction. Assessment and Plan 1. Type 2 Diabetes Mellitus with Chronic Kidney Disease Stage 3A & Neuropathy - Continue metformin; monitor A1c and renal function. - Address diarrhea by taking Metformn w/ food, if intolerable consider med change at next visit. - Foot checks - Declined Statin. on ASA 2. Non-proliferative Diabetic Retinopathy/Cataracts - Annual ophthalmology follow-up scheduled. 3. Obesity - Lifestyle modification advised. 4. Major Depressive Disorder and PTSD - Non-medication management 5. Thrombocythemia - Maintain current hematology-directed regimen. 6. Back pain w/ sciatica - Mechanical relief and rare analgesics. 7. Hearing loss - Audiology referral - Cerumen removed today Patient Instructions - Schedule and attend appointments for upcoming lab work and A1c check. - Keep an eye on blood sugar levels and report any significant changes. - Regularly visit the aerospace products sales engineer for eye health and new glasses. - Stay active to help manage weight and back pain. - Monitor hearing and follow up with audiology to manage hearing issues. - Report any worsening symptoms of diarrhea or side effects of medications immediately. - RTO 3-4 mo w/ labs for routine fu sooner as needed. Consent Patient was informed and verbally consented to the use of an ambient scribe for clinic documentation during this visit. An additional 40 minutes was spent addressing the problem(s) noted at todays visit. This includes time spent before the visit reviewing the chart, time spent during the visit, and time spent after the visit on documentation reviewing laboratory results, diagnostic imaging, medications, performing a medically necessary evaluation, counseling on diagnoses, care coordination, ordering appropriate tests, ordering appropriate medications, review of tests performed by other providers, reporting test results with the patient, communication with other healthcare providers. 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: Yes Do you presently have visiting nurse or other home services: No 75 years or older and lives alone: No Alcohol intake: current Alcohol intake frequency: a few times a month Patient Tobacco Use Status: Never used Tobacco e-Cigarette/Vaping Use: Never Used Second Hand Smoke Exposure: No Substance Use Type: Marijuana service: No Current occupational status: retired Current occupational exposures/hazards: No Cognitive needs: No Hearing needs: No Vision needs: Yes (wear glasses) Questionnaire Medicare Wellness Checkup What [age]?: [age] What gender do you identify with?: male During the past 4 weeks, has your physical & emotional health limited your social activities with family, friends, neighbors, or groups?: not at all During the past 4 weeks, how much bodily pain have you generally had?: no pain During the past 4 weeks, was someone available to help you if you needed & wanted help?: yes, as much as I wanted During the past 4 weeks, what was the hardest physical activity you could do for at least 2 minutes?: moderate Can you get to places out of walking distance without help? (For eg., can you travel alone on buses, taxis or drive your car?): Yes Can you go shopping for groceries or clothes without someone's help?: Yes Can you prepare your own meals?: Yes Can you do your housework without help?: Yes Because of any health problems, do you need the help of another person with your personal care needs such as eating, bathing, dressing or getting around the house?: No Can you handle your own money without help?: Yes During the past 4 weeks, how would you rate your health in general?: excellent During the past 4 weeks how have things been going for you?: very well; could hardly better Are you having difficulties driving your car?: no Do you always fasten your seat belt when you are in a car?: yes, usually During past 4 weeks, have you been bothered by the following: never: Falling or dizzy when standing up, Sexual problems?, Trouble eating well?, Teeth or denture problems?, Problems using the telephone? and Tiredness or fatigue? Have you fallen 2 or more times in the past year?: No Are you afraid of falling?: No Are you a smoker?: no During the past 4 weeks, how many drinks of wine, beer, or other alcoholic beverages did you have?: no alcohol at all Do you exercise for about 20 minutes 3 or more times a week?: yes, some of the time Have you been given information to help with the following?: no: Hazards in your house that might hurt you? and no: Keeping track of your medications? How often do you have trouble taking medicines the way you have been told to take them?: I always take medicine as prescribed How confident are you that you can control & manage most of your health problems?: very confident What is your race?: White Activity of Daily Living Bathing - sponge bath, tub bath or shower: receives no assistance (gets in/out by self, if usual bathing means Dressing - getting clothes from closets & drawers, including inner/outer garments & fasteners.: gets clothes & gets completely dressed without help Toileting - going to the 'toilet room' for urine/bowel elimination & cleaning self/arranging clothes: goes to toilet room, cleans self, arranges clothes without help Transfer: moves in & out of bed and chair without help (may use support object) Continence: controls urination/bowel movements completely by self Feeding: feeds self without help Total Score: 0 Information obtained from: patient Using telephone: independent Traveling: independent Shopping: independent Preparing meals: independent Housework: independent Taking medicine: independent Managing money: independent PHQ-9 Over the last 2 weeks, how often have you been bothered by any of the following problems? 1. Little interest or pleasure in doing things: not at all 2. Feeling down, depressed, or hopeless: not at all 3. Trouble falling or staying asleep, or sleeping too much: not at all 4. Feeling tired or having little energy: not at all 5. Poor appetite or overeating: not at all 6. Feeling bad about yourself - or that you are a failure or have let yourself or your family down: not at all 7. Trouble concentrating on things, such as reading the newspaper or watching television: not at all 8. Moving or speaking so slowly that other people could have noticed. Or the opposite - being so fidgety or restless that you have been moving around a lot more than usual: not at all 9. Thoughts that you would be better off or of hurting yourself in some way: not at all Total score: 0 Depression Screening Interpretation: Negative Depression Screening Done: Yes 71354 - PHQ-9 Billing: Yes Source: Developed by Drs. Ruben Parikh, Qian Mcmahan, Del Hilton and colleagues, with an educational gretchen from [employer]. Physical Exam Vital Signs: Last Vital Signs Temp 97.1 F 07/02/25 08:06 Pulse 63 07/02/25 08:06 Resp 13 07/02/25 08:06 BP 138/68 07/02/25 08:32 Pulse Ox 99 07/02/25 08:06 Oxygen Delivery Method Room Air 07/02/25 08:06 BMI result Body Mass Index 32.2 Office Procedures AMB Patient Education/Training AMB Patient Education/Training Documentation: [id number] Separately and distinctly, 8 minutes face to face counseling on risk factor reduction related to diet, exercise, weight management, sexual health, immunization, injury prevention. Medical necessity includes review of VS, BMI, current medications, age/race/gender to identify risks. Patient was provided with a wellness handout at the time of discharge. Cerumen Removal From which ear canal was the cerumen removed: bilateral Removal: irrigation Notes: patient tolerated procedure well, no complications and ear canal clear [id number] Irrigation/Lavage Diabetic Foot Exam [id number] - Diabetic Foot Exam EKG [id number], Complete Vision Screening Right Eye: 20/20 Left Eye: 20/20 Bilateral: 20/20 Color: Pass Corrected: Pass (wearing glasses) [id number] - Vision Screening Results Reviewed Results Reviewed: Assessment & Plan Assessment & Plan (1) Encounter for subsequent annual wellness visit (AWV) in Medicare patient: Onset Date: ~07/02/25 Code(s): Z00.00 - Encounter for general adult medical examination without abnormal findings (2) ACP (advance care planning): Code(s): Z71.89 - Other specified counseling (3) Nonproliferative diabetic retinopathy: Comment: dm eye exam 07/21/24 bilat + macular edema, cataracts [facility] Code(s): E11.3299 - Type 2 diabetes mellitus with mild nonproliferative diabetic retinopathy without macular edema, unspecified eye (4) MDD (major depressive disorder), recurrent episode: Code(s): F33.9 - Major depressive disorder, recurrent, unspecified Qualifiers: Major depression episode severity: mild Qualified Code(s): F33.0 - Major depressive disorder, recurrent, mild (5) Diabetes mellitus type 2 with complications: Code(s): E11.8 - Type 2 diabetes mellitus with unspecified complications (6) Obesity (BMI 30-39.9): Code(s): E66.9 - Obesity, unspecified (7) Stage 3a chronic kidney disease due to type 2 diabetes mellitus: Code(s): E11.22 - Type 2 diabetes mellitus with diabetic chronic kidney disease; N18.31 - Chronic kidney disease, stage 3a (8) Essential thrombocythemia: Code(s): D47.3 - Essential (hemorrhagic) thrombocythemia (9) Hearing loss: Code(s): H91.90 - Unspecified hearing loss, unspecified ear Qualifiers: Hearing loss type: unspecified Laterality: bilateral Qualified Code(s): H91.93 - Unspecified hearing loss, bilateral (10) Bilateral sciatica: Code(s): M54.31 - Sciatica, right side; M54.32 - Sciatica, left side (11) Diabetic neuropathy: Code(s): E11.40 - Type 2 diabetes mellitus with diabetic neuropathy, unspecified Qualifiers: Diabetes mellitus type: type 2 Diabetes mellitus complication detail: diabetic mononeuropathy Qualified Code(s): E11.41 - Type 2 diabetes mellitus with diabetic mononeuropathy (12) PVD (peripheral vascular disease): Code(s): I73.9 - Peripheral vascular disease, unspecified (13) DNR (do not resuscitate): Code(s): Z66 - Do not resuscitate (14) Physician orders for life-sustaining treatment (POLST) form indicates patient wish for to-mky-[id number] status: Onset Date: ~07/02/25 Code(s): Z66 - Do not resuscitate (15) Influenza vaccination declined: Code(s): Z28.21 - Immunization not carried out because of patient refusal (16) Pneumococcal vaccination declined: Code(s): Z28.21 - Immunization not carried out because of patient refusal (17) Herpes zoster vaccination declined: Code(s): Z28.21 - Immunization not carried out because of patient refusal (18) Immunization counseling: Code(s): Z71.85 - Encounter for immunization safety counseling (19) Impacted cerumen, bilateral: Code(s): H61.23 - Impacted cerumen, bilateral Plan . Orders: Orders Lipid Panel 4 Months E11.22 - Type 2 diabetes mellitus with diabetic chronic kidney disease, E11.8 - Type 2 diabetes mellitus with unspecified complications, N18.31 - Chronic kidney disease, stage 3a Hemoglobin A1c 4 Months E11.22 - Type 2 diabetes mellitus with diabetic chronic kidney disease, E11.8 - Type 2 diabetes mellitus with unspecified complications, N18.31 - Chronic kidney disease, stage 3a Comprehensive Met. Panel 4 Months E11.22 - Type 2 diabetes mellitus with diabetic chronic kidney disease, E11.8 - Type 2 diabetes mellitus with unspecified complications, N18.31 - Chronic kidney disease, stage 3a Microalbumin, Random (w Creat) 4 Months E11.22 - Type 2 diabetes mellitus with diabetic chronic kidney disease, E11.8 - Type 2 diabetes mellitus with unspecified complications, N18.31 - Chronic kidney disease, stage 3a Referrals Audiology Referral H91.90 - Unspecified hearing loss, unspecified ear Patient Instructions: Health screenings for men You should visit your health care provider regularly, even if you feel healthy. The purpose of these visits is to: Screen for medical issues Assess your risk for future medical problems Encourage a healthy lifestyle Update vaccinations and other preventive care services Help you get to know your provider in case of an illness Information Even if you feel fine, you should still see your provider for regular checkups. These visits can help you avoid problems in the future. For example, the only way to find out if you have high blood pressure is to have it checked regularly. High blood sugar and high cholesterol level also may not have any symptoms in the early stages. Simple blood tests can check for these conditions. There are specific times when you should see your provider or receive specific health screenings. The [place] Preventive Services Task Force publishes a list of recommended screenings. Below are screening guidelines for men ages 40 to 64. BLOOD PRESSURE SCREENING Have your blood pressure checked at least once every year. Watch for blood pressure screenings in your area. Ask your provider if you can stop in to have your blood pressure checked. Ask your provider if you need your blood pressure checked more often if: You have diabetes, heart disease, kidney problems, or are overweight or have certain other health conditions You have a first-degree relative with high blood pressure You are Black Your blood pressure top number is from 120 to 129 mm Hg, or the bottom number is from 70 to 79 mm Hg If the top number is 130 mm Hg or greater or the bottom number is 80 mm Hg or greater, this is considered stage 1 hypertension. Schedule an appointment with your provider to learn how you can lower your blood pressure. Effects of age on blood pressure CHOLESTEROL SCREENING Cholesterol screening should begin at age 35 for men with no known risk factors for coronary heart disease. Repeat cholesterol screening should take place: Every 5 years for men with normal cholesterol levels More often if changes occur in lifestyle (including weight gain and diet) More often if you have diabetes, heart disease, kidney problems, or certain other conditions COLORECTAL CANCER SCREENING If you are under age 45, talk to your provider about getting screened. You may need to be screened if you have a strong family history of colon cancer or polyps. Screening may also be considered if you have risk factors such as a history of inflammatory bowel disease or polyps. If you are age 45 to 75, you should be screened for colorectal cancer. There are several screening tests available: A stool-based fecal occult blood (gFOBT) or fecal immunochemical test (FIT) every year A stool sDNA test every 1 to 3 years Flexible sigmoidoscopy every 5 years or every 10 years with stool testing FIT done every year CT colonography (virtual colonoscopy) every 5 years Colonoscopy every 10 years You may need a colonoscopy more often if you have risk factors for colorectal cancer, such as: Ulcerative colitis A personal or family history of colorectal cancer A history of growths in your colon called adenomatous polyps DENTAL EXAM Go to the dentist once or twice every year for an exam and cleaning. Your dentist will evaluate if you have a need for more frequent visits. DIABETES SCREENING All adults who do not have risk factors for diabetes should be screened starting at age 35 and repeated every 3 years. If you have other risk factors for diabetes, such as a first degree relative with diabetes, overweight or obesity, high blood pressure, prediabetes, or a history of heart disease, you may be tested more often. If you are overweight and have other risk factors, such as high blood pressure and are planning to become , screening is recommended. EYE EXAM Have an eye exam every 2 to 4 years ages 40 to 54 and every 1 to 3 years ages 55 to 64. Your provider may recommend more frequent eye exams if you have vision problems or glaucoma risk. Have an eye exam that includes an examination of your retina (back of your eye) at least every year if you have diabetes. IMMUNIZATIONS Commonly needed vaccines include: Flu shot: get one every year COVID-19 vaccine: ask your provider what is best for you Tetanus-diphtheria and acellular pertussis (Tdap) vaccine: have as one of your tetanus-diphtheria vaccines if you did not receive it as an adolescent Tetanus-diphtheria: have a booster (or Tdap) every 10 years Varicella vaccine: receive 2 doses if you never had chickenpox or the varicella vaccine and were born in 1980 or after Hepatitis B vaccine: receive 2, 3, or 4 doses, depending on your exact circumstances, if you did not receive these as a child or adolescent, until age 59 Shingles (herpes zoster) vaccine: at or after age 50 Ask your provider if you should receive other immunizations, especially if you have certain medical conditions, such as diabetes or are at increased risk for some diseases such as pneumonia. INFECTIOUS DISEASE SCREENING Screening for hepatitis C: all adults ages 18 to 79 should get a one-time test for hepatitis C. Screening for human immunodeficiency virus (HIV): all people ages 15 to 65 should get a one-time test for HIV. Depending on your lifestyle and medical history, you may need to be screened for infections such as syphilis, chlamydia, and other infections. LUNG CANCER SCREENING You should have an annual screening for lung cancer with low-dose computed tomography (LDCT) if: You are age 50 to 80 years AND You have a 20 pack-year smoking history AND You currently smoke or have quit within the past 15 years OSTEOPOROSIS SCREENING If you are age 50 to 64 and have risk factors for osteoporosis, you should discuss screening with your provider. Risk factors can include long-term steroid use, low body weight, smoking, heavy alcohol use, having a fracture after age 50, or a family history of hip fracture or osteoporosis. Osteoporosis PHYSICAL EXAM All adults should visit their provider from time to time, even if they are healthy. The purpose of these visits is to: Screen for diseases Assess risk of future medical problems Encourage a healthy lifestyle Update vaccinations and other preventive care services Maintain a relationship with a provider in case of an illness Your height, weight, and body mass index (BMI) should be checked at every exam. During your exam, your provider may ask you about: Depression and anxiety Diet and exercise Alcohol and tobacco use Safety, such as use of seat belts and smoke detectors Your medicines and risk for interactions PROSTATE CANCER SCREENING If you're 55 through 69 years old, before having the test, talk to your provider about the pros and cons of having a PSA test. Ask about: Whether screening decreases your chance of dying from prostate cancer. Whether there is any harm from prostate cancer screening, such as side effects from testing or overtreatment of cancer when discovered. Whether you have a higher risk of prostate cancer than others. If you are age 55 or younger, screening is not generally recommended. You should talk with your provider about if you have a higher risk for prostate cancer. Risk factors include: Having a family history of prostate cancer (especially a brother or father) Being If you choose to be tested, the PSA blood test is repeated over time (yearly or less often), though the best frequency is not known. Prostate examinations are no longer routinely done on men with no symptoms. Prostate cancer SKIN EXAM Your provider may check your skin for signs of skin cancer, especially if you're at high risk. People at high risk include those who have had skin cancer before, have close relatives with skin cancer, or have a weakened immune system. TESTICULAR EXAM The [place] Preventive Services Task Force (USPSTF) now recommends against performing testicular self-exams. Doing testicular self-exams has been shown to have little to no benefit. Quality Reporting (2019) Adult ([facility] 138//) Smoking risk assessment performed?: Yes Patient Tobacco Use Status: Never used Tobacco Depression screening performed: Yes Screen Results: Yes Negative screen Systolic BP not done?: No Diastolic BP not done?: No BMI screening not done: No BMI High - Follow Up: Yes High-plan Sexual Activity Screening ([facility] 153) Sexually active?: No Immunizations ([facility] 147, 117) Annual Influenza Vaccine: Yes Measles Antibody Test: No Mumps Antibody Test: No Rubella Antibody Test: No Varicella Antibody Test: No Anti Hepatitis A IgG Antigen test: No Anti Hepatitis B Virus Surface Ab test: No Fall Risk Screening ([facility] 139) Last assessed Fall Risk: 07/02/25 Fall risk assessment: No Falls in past year Dementia Assessment ([facility] 149) Cognitive assessment recorded: Yes Assessment of cognition with standardized tool: Yes Depression/Bipolar (159/160/161/177) PHQ-9: Total score: 0 Ophthalmol:Cataracts Visual Acuity (133) Visual acuity exam performed: Yes (see results) Coding Level of Care Code Medicare Subsequent (G0439) Est Pt Level 5 (29171) Diagnoses Encounter for subsequent annual wellness visit (AWV) in Medicare patient Z00.00 ACP (advance care planning) Z71.89 Nonproliferative diabetic retinopathy E11.3299 Mild episode of recurrent major depressive disorder F33.0 Major depression episode severity: mild Diabetes mellitus type 2 with complications E11.8 Obesity (BMI 30-39.9) E66.9 Stage 3a chronic kidney disease due to type 2 diabetes mellitus E11.22; N18.31 Essential thrombocythemia D47.3 Bilateral hearing loss, unspecified hearing loss type H91.93 Hearing loss type: unspecified Laterality: bilateral Bilateral sciatica M54.31; M54.32 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.41 Diabetes mellitus type: type 2 Diabetes mellitus complication detail: diabetic mononeuropathy PVD (peripheral vascular disease) I73.9 DNR (do not resuscitate) Z66 Physician orders for life-sustaining treatment (POLST) form indicates patient wish for gi-jju-cbawbmghbuh status Z66 Influenza vaccination declined Z28.21 Pneumococcal vaccination declined Z28.21 Herpes zoster vaccination declined Z28.21 Immunization counseling Z71.85 Impacted cerumen, bilateral H61.23 CPT Codes Advance Care Planning - Time spent: 16-45 minutes ([id number]) Office Procedure - CPT: 67084-Lwh Irrigation/Lavage ([id number]) Diabetic Foot Exam - CPT: G9226 - Diabetic Foot Exam ([id number]) EKG - CPT: 98695-Cogbdkycfnuluwmsx, Complete ([id number]) Vision Screening - Vision Screenin - Vision Screening ([id number]) Additional Codes PHQ-9 - 06859 - PHQ-9 Billing: Yes ([id number]) Advance Care Planning Advance Care Planning discussion: Exists, not on file Date of discussion: 07/02/25 Who was present: self Forms completed: Health Care Proxy, MOLST and Living will Time spent: 16-45 minutes Actual minutes spent: 16
--- OUTSIDE RECORDS SUMMARY | 2025-07-02 08:02 | XMS_ITS | Clinical Summary ---
Author Organization [facility] [place] [address] Phone Care Team Providers Care Cut Off Man Name Role Phone Zachery Dowling MD Primary Care Provider [phone] Allergies No known active allergies Medications naproxen [...] Date Diagnosed Date Essential thrombocytosis (CMS/HCC V24, [facility] V 28) 11/23/2019 Thrombocytosis 03/12/2018 Resolved Problems Problem Noted Date Diagnosed Date Resolved Date Diabetic neuropathy (CMS/HCC V24, CMS/HCC V28) 04/04/2018 09/18/2024 Tick bite 04/04/2018 09/18/2024 Overview (09/07/2024): history DM (diabetes mellitus), type 2 with neurological complications (CMS/HCC V24, CMS/HCC V28) 03/12/2018 09/18/2024 Neutrophilia 03/12/2018 09/18/2024 Polycythemia 03/12/2018 09/18/2024 Encounters Date Type Department Care Team Description 04/27/2025 1:15 PM EDT Office Visit [facility] Hematology Oncology [address] [place] [address] Shahram Rondon MD Essential thrombocytosis ([facility] V24, [facility] V28) (Primary Dx) from Last 3 Months Medical History Medical History Date Comments Polycythemia 03/12/2018 DX:Polycythemia Neutrophilia 03/12/2018 DX:Neutrophilia Thrombocytosis 03/12/2018 DX:Thrombocytosi s DM (diabetes mellitus), type 2 with neurological complications ([facility] V24, [facility] V28) 03/12/2018 DX:DM (diabetes mellitus), t ype 2 with neurological complications (HCC) Diabetic neuropathy ([facility] V24, [facility] V28) 04/04/2018 DX:Diabetic neuropathy (HCC) Tick bite 04/04/2018 DX:Tick bite; CO MMENT: history Diabetic neuropathy ([facility] V24, [facility] V28) 04/04/2018 DX:Diabetic neuropathy (HCC) DM (diabetes mellitus), type 2 with neurological complications ([facility] V24, [facility] V28) 03/12/2018 DX:DM (diabetes mellitus), t ype [...] Description 07/27/2025 1:30 PM EDT Office Visit [facility] Hematology Oncology [address] [place] [address] Shahram Rondon MD [address] [place] [address] Health Maintenance Due Date Last Done Comments Zoster Vaccines (1 of 2) 1971 Pneumococcal Vaccine: 50+ Years (1 of 1 - PCV) 2002 Abdominal Aortic Aneurysm (AAA) Screen 09/11/2022 Cholesterol Screening (Lipid Panel) 09/11/2022 Colorectal Cancer Screening: Colonoscopy 09/11/2022 Falls Risk Assessment 09/11/2022 Hepatitis C Screening 09/11/2022 Medicare Annual Wellness Visit 09/11/2022 Social Influencers of Health Screening 09/11/2022 Depression Screening 10/14/2024 COVID-19 Vaccine (4 - 2024-2 6 season) 2025 10/02/2021, 02/17/2021, 01/27/2021 Influenza Vaccine (#1) 2025 RSV Immunization Adult [...] Routine 04/26/2025 8:43 AM EDT Essential thrombocytosis ([facility] V24, [facility] V28) CBC AND DIFFERENTIAL Routine 04/26/2025 8:43 AM EDT Essential thrombocytosis ([facility] V24, [facility] V28) from Last 3 Months Results * (ABNORMAL) CBC auto differential (04/26/2025 8:43 AM EDT) WBC 9.5 4.8 - 10.8 K/mcL LAB HEMETOLOGY METHOD 04/26/2025 11:45 AM [facility] RBC 3.70(L) 4.50 - 5.50 M/mcL LAB HEMETOLOGY METHOD 04/26/2025 11:45 AM [facility] Hemoglobin 12.5(L) 13.5 - 17.5 g/dL LAB HEMETOLOGY METHOD 04/26/2025 11:45 AM [facility] Hematocrit 37.7(L) 42.0 - 54.0 % LAB HEMETOLOGY METHOD 04/26/2025 11:45 AM [facility] MCV 103.0(H) 79.0 - 98.0 FL LAB HEMETOLOGY METHOD 04/26/2025 11:45 AM [facility] MCH 34.2(H) 27.0 - 32.0 pcg LAB HEMETOLOGY METHOD 04/26/2025 11:45 AM [facility] MCHC 33.2 32.0 - 37.0 g/dL LAB HEMETOLOGY METHOD 04/26/2025 11:45 AM [facility] RDW 14.5 11.0 - 15.0 % LAB HEMETOLOGY METHOD 04/26/2025 11:45 AM [facility] Platelets 484(H) 130 - 400 K/mcL LAB HEMETOLOGY METHOD 04/26/2025 11:45 AM [facility] MPV 10.3 7.0 - 11.0 FL LAB HEMETOLOGY METHOD 04/26/2025 11:45 AM [facility] NRBC 0.0 <1.0 % LAB HEMETOLOGY METHOD 04/26/2025 11:45 AM [facility] NRBC Absolute 0.00 <0.10 K/mcL LAB HEMETOLOGY METHOD 04/26/2025 11:45 AM [facility] Neutrophils Relative 69.8 % LAB HEMETOLOGY METHOD 04/26/2025 11:45 AM [facility] Lymphocytes Relative 15.5 % LAB HEMETOLOGY METHOD 04/26/2025 11:45 AM [facility] Monocytes Relative 7.5 % LAB HEMETOLOGY METHOD 04/26/2025 11:45 AM [facility] Eosinophils Relative 3.7 % LAB HEMETOLOGY METHOD 04/26/2025 11:45 AM [facility] Basophils Relative 1.5 % LAB HEMETOLOGY METHOD 04/26/2025 11:45 AM [facility] Immature Granulocytes Relative 2.0 % LAB HEMETOLOGY METHOD 04/26/2025 11:45 AM [facility] Neutrophils Absolute 6.62 1.50 - 7.00 K/mcL LAB HEMETOLOGY METHOD 04/26/2025 11:45 AM [facility] Lymphocytes Absolute 1.47 1.00 - 5.00 K/mcL LAB HEMETOLOGY METHOD 04/26/2025 11:45 AM [facility] Monocytes Absolute 0.71 0.20 - 1.00 K/mcL LAB HEMETOLOGY METHOD 04/26/2025 11:45 AM EDT [facility] Eosinophils Absolute 0.35 0.00 - 0.50 K/[facility] LAB HEMETOLOGY METHOD 04/26/2025 11:45 AM EDT [facility] Basophils Absolute 0.14 0.00 - 0.20 K/[facility] LAB HEMETOLOGY METHOD 04/26/2025 11:45 AM EDT [facility] Immature Granulocytes Absolute 0.19(H) 0.00 - 0.03 K/[facility] LAB HEMETOLOGY METHOD 04/26/2025 11:45 AM EDT [facility] ([facility] Blood Venous blood specimen / Unknown Venipuncture / Unknown 04/26/2025 8:43 AM EDT 04/26/2025 11:29 AM EDT us Shahram Rondon MD LAB BLOOD ORDERABLES Final Result [facility] ([facility]) [facility] [address] [address], from Last 3 Months Insurance MEDICAID - [place] [facility] MEDICARE [employer]VANTAGE Care Teams Cut Off Man Relationship Specialty Start Date End Date Zachery Dowling MD [address] [place] [phone] PCP - General Internal Medicine 02/26/18
--- OUTSIDE RECORDS SUMMARY | 2025-07-02 08:02 | XMS_ITS | Clinical Summary ---
Author Organization [facility] Address [address] [place] [address] Care Team Providers Care Conventions Reservationist Name Role Phone Zachery Dowling MD Primary Care Provider [phone] Allergies No known active allergies Medications Medication [...] age to complete this topic Care Teams Conventions Reservationist Relationship Specialty Start Date End Date Zachery Dowling MD [address] [place] [phone] PCP - General Internal Medicine 11/09/19
[2025-07-02 08:06] VITALS: BP 154/78; PULSE 63; RESP 13; TEMP 36.2; O2SAT 99; BMI 32.2
[2025-07-02 08:32] VITALS: BP 138/68
== END 2025-07-02 09:00 | disposition home or self-care (01) ==
LOC: HO.HMCFM 07:59
PROVIDERS: PCP Nurse Practitioner Family; Visit Provider Nurse Practitioner Family
DX: Z00.00 Encounter for general adult medical examination without abnormal findings (principal); E11.3299 Type 2 diabetes mellitus with mild nonproliferative diabetic retinopathy without macular edema, unspecified eye; E11.8 Type 2 diabetes mellitus with unspecified complications; E11.22 Type 2 diabetes mellitus with diabetic chronic kidney disease; N18.31 Chronic kidney disease, stage 3a; D47.3 Essential (hemorrhagic) thrombocythemia; E11.41 Type 2 diabetes mellitus with diabetic mononeuropathy; F33.0 Major depressive disorder, recurrent, mild; E66.9 Obesity, unspecified; H91.93 Unspecified hearing loss, bilateral; M54.31 Sciatica, right side; H61.23 Impacted cerumen, bilateral

== ENCOUNTER → 2025-07-02 07:58 | Outpatient (BNVA) | payer OTHER, SELFPAY | PROVIDERS: PCP Nurse Practitioner Family; Visit Provider Nurse Practitioner Family | DX: Z00.00 Encounter for general adult medical examination without abnormal findings (principal); E11.22 Type 2 diabetes mellitus with diabetic chronic kidney disease; N18.31 Chronic kidney disease, stage 3a; E11.3299 Type 2 diabetes mellitus with mild nonproliferative diabetic retinopathy without macular edema, unspecified eye; E66.9 Obesity, unspecified; F90.9 Attention-deficit hyperactivity disorder, unspecified type; M54.41 Lumbago with sciatica, right side; M54.42 Lumbago with sciatica, left side; F43.10 Post-traumatic stress disorder, unspecified; F33.0 Major depressive disorder, recurrent, mild; D47.3 Essential (hemorrhagic) thrombocythemia; E11.41 Type 2 diabetes mellitus with diabetic mononeuropathy; E11.51 Type 2 diabetes mellitus with diabetic peripheral angiopathy without gangrene; H61.23 Impacted cerumen, bilateral; Z68.32 Body mass index [BMI] 32.0-32.9, adult; Z71.89 Other specified counseling; Z66 Do not resuscitate | CPT/HCPCS: 69209; 93005; 96127; 99212; 99497 ==

== ENCOUNTER 2025-10-04 13:41 | Outpatient (AMB) | payer OTHER, SELFPAY ==
--- OUTSIDE RECORDS SUMMARY | 2024-07-28 14:40 | XMS_ITS | Encounter Summary ---
Author Organization [employer] [facility] Address [address] [place] [address] Care Team Providers Care Beef Lugger Name Role Phone Zachery Dowling MD Primary Care Provider [phone] Encounter Details Date Type Department Care Team (Late st Contact Info) Description 07/28/2024 3:40 PM EDT Hospital Encounter TH HISTORIC ENCOUNTERS EASTERN CONVERSION ONLY Shahram Rondon MD [address] [place] [phone] Social History Tobacco Use Types Packs/Day Years Used Date Smoking Tobacco: Former Cigarettes Smokeless Tobacco: Never Alcohol Use Standard Drinks/Week Comments Yes 0 (1 standard drink = 0.6 oz pur e alcohol) Sex and Gender Information Value Date Recorded Sex Assigned at Not on file Legal Sex Male 10:39 AM EST Gender Identity Not on file Sexual Orientation Not on file documented as of this encounter Last Filed Vital Signs Vital Sign Reading Time Taken Comments Blood Pressure 137/67 07/28/2024 3:43 PM EDT Sit ting Left arm Pulse 64 07/28/2024 3:43 PM EDT Temperature - - Respiratory Rate - - Oxygen Saturation - - Inhaled Oxygen Concentration - - Weight 110 kg (242 lb) 07/28/2024 3:43 PM EDT Height 188 cm (6' 2 ) 07/28/2024 3:43 PM EDT Body Mass Index 31.07 07/28/2024 3:43 PM EDT documented in this encounter Progress Notes * Shahram Rondon MD - 07/28/2024 3:45 PM EDT Diagnosis/treatment: Essential thrombocytosis. He takes Hydrea 1000 mg on Saturday//Saturday/Saturday and 500 mg onother days. ?? Interval history: ?? The patient is a 73-year-old recently smoking gentleman who was referred for evaluation of a neutrophilia and thrombocytosis. ?? A CBC on 01/14/2018 showed a WBC 14.6, hemoglobin 15.6 with MCV 94, and platelet count 594,000. ?? A CBC on 02/24/2018 showed WBC 13.9 with ANC 9.0, hemoglobin 15.6 with MCV 93, and a platelet count 607,000. ?? A BCR-ABL gene mutation study on 03/12/2018 was negative. A MIRIAN-2 gene mutation study on 03/12/2018 was negative. ?? A CBC on 04/02/2018 showed a WBC of 3.8, hemoglobin 15.0 with MCV 93, and a platelet count 607,000. ?? He reports falling in 09/2017 and suffering a significant left elbow injury. He reported marked left elbow swelling which is gradually diminishing and nearly resolved. He had no pain. He had no fevers chills or sweats. He did not receive antibiotics. ?? A CBC on 07/21/2018 showed a WBC 11.0, hemoglobin 14.8 with MCV 94, and a platelet count 540,000. ?? He suffered a left dorsum of the hand laceration in late 01/2019, which developed purulent discharge. He managed the wound with topical antibacterials and the wound healed. He did not take oral antibiotics. ?? A CBC on 02/20/2019 showed a WBC 12.0 with ANC 8.4, hemoglobin 14.3 with MCV 94, and platelet count 640,000. ?? A CBC on 08/31/2019 showed a WBC 13.3 with ANC 8.9, hemoglobin 14.9 with MCV 96, and platelet ffobv784,000. He underwent a bone marrow aspirate and biopsy on 11/09/2019 and the pathology revealed essential thrombocytosis. A CBC on 11/19/2019 showed a WBC 13.1 with ANC 9.5, hemoglobin 14.4 with MCV 95, and platelet count 685,000. He tolerated Hydrea 500 mg daily well without side effects. A CBC on 01/20/2020 showed a WBC 13.5, hemoglobin 15.0 with MCV 96,and platelet count 755,000. We increased the Hydrea dose to 1000 mg Xuhnah-Qwemktkcn-Nzubgy and 500 mg the other days and he tolerated therapy well without side effects. He is a garcia and reports frequent easy bleeding on aspirin 81 mg daily. A CBC on 03/24/2020 showed a WBC 11.0 with ANC 7.7, hemoglobin 13.8 with MCV 103, and platelet psayk668,000. A CBC on 05/30/2020 showed a WBC 9.3 with ANC 6.4, hemoglobin 14.3 with MCV 109, and platelet count 572,000. A CBC on 09/19/2020 showed a WBC 10.8 with ANC 7.5, hemoglobin 13.9 with MCV 108, and platelet ,000. We increased the Hydrea dose to 1000 mg twice daily and is tolerating therapy reasonably well. He reported infrequent diarrhea. A CBC on 12/15/2020 showed a WBC 10.5 with ANC 6.5, hemoglobin 14.1 with MCV 107, and platelet count 551,000. He admitted noncompliance in 2020 with the second dose of the Hydrea as he would forget or fall asleep before his dose. He also admits noncompliance with the aspirin. A CBC on 03/27/2021 showed a WBC 11.0 with ANC 7.2, hemoglobin 14.2 with MCV 107, and platelet ,000. A CBC on 07/04/2021 showed a WBC 12.0 with ANC 8.9, hemoglobin 14.2 with MCV 111, and platelet neolh509,000. A CBC on 10/27/2021 showed a WBC 7.4 with ANC 4.8, hemoglobin 13.9 with MCV 108, and platelet count 389,000. Due to confusion about the dosing, he had been taking Hydrea dose at 1000 mg Saturday//Saturday/Saturday and 500 mg the other days. He has been tolerating therapy without side effects. A CBC on 01/29/2022 showed a WBC 10.2, hemoglobin 14.7 with MCV 106, and platelet count 693,000. A CBC on 05/01/2022 showed WBC 12.7 with ANC 8.9 and ALC 2.2, hemoglobin 13.7 with MCV 108, and platelet count 677,000. A CBC on 08/22/2022 showed WBC 10.6 with ANC 7.0 and ALC 2.1, hemoglobin 14.3 with MCV 108, and platelet count 643,000. A CBC on 12/26/2022 showed WBC 10.7 with ANC 7.4 and ALC 1.6, hemoglobin 14.5 with MCV 107, and platelet count 614,000. A CBC on 04/22/2023 showed WBC 11.6 with ANC 7.7 and ALC 2.2, hemoglobin 13.8 with MCV 107, and platelet count 635,000. A CBC on 08/26/2023 showed WBC 13.6 with ANC 9.4 and ALC 2.1, hemoglobin 13.9 with MCV 105, and platelet count 483,000. A CBC on 01/02/2024 showed WBC 9.1 with ANC 5.9 and ALC 1.9, hemoglobin 14.2 with MCV 103, and platelet count 522,000. A CBC on 04/23/2024 showed WBC 11.3 with ANC 7.7 and ALC 2.2, hemoglobin 14.1 with MCV 102, and platelet count 526,000. A CBC on 07/27/2024 showed WBC 9.0 with ANC 5.7 and ALC 2.1, hemoglobin 13.7 with MCV 107, and platelet count 517,000. ?? He denies any new symptoms. He denies B symptoms. He denies awareness of peripheral lymphadenopathy. ?? He reports that he last smoked tobacco a year prior to diagnosis. He continues to smoke marijuana. Review of systems: The remainder of a 10 point review of systems was unremarkable. Physical examination: HEENT: Sclerae anicteric, normal oropharyngeal membrane. Neck: No lymphadenopathy. Lungs: Clear to auscultation. Heart: No murmurs. Abdomen: Soft, nontender, no organomegaly or masses. Extremities: No edema. Skin: No rash. Neurologic: Normal gait. Assessment/plan: The patient is a 73-year-old gentleman who was diagnosed in 10/2019 with essential thrombocytosis. AJAK-2 gene mutation study and a BCR-ABL PCR assay were negative. ?? I discussed the risk of thrombosis and CVAs associated with essential thrombocytosis. I prescribed hydroxyurea 500 mg daily with a goal to reduce the platelet count below 450,000. I discussed potential adverse effects of hydroxyurea, including mouth sores, nausea, diarrhea, and skin ulcers. I instru cted him to start aspirin 81 mg daily. A CBC in early 01/2020 showed a stable but persistently elevated platelet count. I instructed him toincrease the Hydrea to 1000 mg daily on Saturday and Saturday and 500 mg daily on the other 4days. He tolerated therapy well without side effects. The platelet count initially trended down andon therapy but milly in 09/2020. I instructed him to increase the Hydrea to 500 mg twice daily. The p latelet count stabilized. He admitted noncompliance in 2020 with the second dose of the Hydrea as he would forget or fall asleep before his dose. He also admitted noncompliance with the aspirin. I instructed him on the importance of taking the Hydrea as prescribed and restarting aspirin 81 mg daily. He became confused about his regimen in early 2021. He has been taking Hydrea 1000 mg Saturday//Saturday/Saturday and 500 mg on other days. The platelet count milly to the 600,000 range. Due to the frequent confusion and noncompliance, I instructed him to continue the same regimen. The plateletcount has decreased on therapy. We will consider increasing Hydrea back to 1000 mg daily if the platelet count progresses.. He reports compliance with aspirin 81 mg daily. This encounter is of high risk. The patient has essential thrombocytosis, which is a life-threatening condition. He remains on anticancer therapy with Hydrea chemotherapy, which carries a risk of significant morbidity and mortality. documented in this encounter Plan of Treatment Upcoming Encounters Date Type Department Care Team (Late st Contact Info) Description 10/26/2025 1:30 PM EST Office Visit [facility] Hematology Oncology [address] [place] [phone] Shahram Rondon MD [address] [place] [phone] documented as of this encounter Procedures Procedure Name Priority Date/Time Associated Diagnosis Comments ..MISCELLANEOUS REFERENCE LAB TEST 07/28/2024 documented in this encounter Results * Miscellaneous reference lab test (07/28/2024) us Provider Onbase LAB BLOOD ORDERABLES Final Re sult documented in this encounter Visit Diagnoses Not on filedocumented in this encounter Care Teams Beef Lugger Relationship Specialty Start Date End Date Zachery Dowling MD [address] [place] [phone] PCP - General Internal Medicine 02/26/18 documented as of this encounter
--- NOTE | 2025-10-04 13:45 | A.OFFPC_ITS ---
Vital Signs 10/04/25 13:53 Height 6 ft 1 in Weight 246 lb 6 oz BMI 32.5 BP 138/78 Blood Pressure Location Rt brachial Position Sitting Respiration 13 Pulse 56 Pulse Source Pulse Oximeter Temp 97.1 F Temp Source Oral Pulse Oximetry (%) 99 Oxygen Delivery Method Room Air Intake Visit Reasons: 3-4 mo routine fu labs 1 week before Intake Note: Routine follow up Cable Tool Driller Required: No Allergies No Known Allergies Allergy (Verified 10/04/25 13:45) Medication List - Last Reconciled 10/04/25 by DANNIELLE Ma- aspirin (Adult Low Dose Aspirin) 81 mg PO DAILY hydroxyurea 1,000 mg PO DAILY metformin ER 1,000 mg (2 x 500 mg) PO DAILY naproxen sodium (Aleve) 220 mg PO ONCE PRN Tobacco use date assessed: 10/04/25 Fall risk assessment: No Falls in past year Last assessed Fall Risk: 10/04/25 Dental Screening Dental Screen Date: 10/04/25 Did you have a dental visit in the last 12 months?: Yes Did you have a dental problem in the last 6 months where you did not have access to dental care?: No Was dental information given to patient?: Patient has dentist HPI HPI Comments History of Present Illness Details 74 Y/O M with MDD, PTSD, obesity, DM 2, CKD3a, Thrombocyothemia, nonproliferative DM retinopathy SurgHx: Y FHx: Y 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 AAA screen: NA EKG: NSR DIABETIC EYE EXAM 04/2025 DOCUMENTS NONPROLIFERATIVE DIABETIC RETINOPATHY WITH MACULAR EDEMA BILAT, CATARACTS BILAT (CONSIDER SURGERY) [place] of Care: Heme Dr Alcon Cline next appt Optho Dr Painter for DM Eye exam History of Present Illness The patient is a 74 year old male presenting for a routine followup of chronic conditions. Type 2 diabetes mellitus: - The patient's type 2 diabetes mellitus is managed with metformin 1000 mg daily. - His prior A1c was 8.7%, and today's re sult is 6.5%. - He reports that sensation has returned to his feet, which he previously could not feel. Overweight: - The patient reports weight gain, which he attributes to inactivity from cold weather. - His weight today is 247 pounds, an inc rease of 3 pounds from 244 pounds at his last visit. Gastrointestinal Issues: - The patient reports previously experie ncing diarrhea with metformin, which has since improved after a medication change, although he still experiences some diarrhea. - He notes that his bowel movements are not as regular as they have been for most of his life, with a pattern of one bowel movement in the morning. - He describes his stools as having been really greasy in the past, and although they are getting a lot better, they remain somewhat greasy. - He denies any hematochezia or abdomina l pain. - His last colonoscopy was in 2019. Low Back Pain: - The patient reports having severe lowe r back pain at times, which another provider diagnosed as walking arthritis. - The pain is worse after lying down at night, causing significant difficulty with rolling out of bed, but improves with ambulation. - He takes Aleve for the pain as needed, approximately every four days. Review of Systems - Constitutional: Reports weight gain. - GI: Reports steatorrhea and diarrhea, though both are improving. Reports bowel movements are less regular than his lifetime norm. Denies abdominal pain and hematochezia. - Musculoskeletal: Reports intermittent, severe low back pain. - Neurological: Reports improved sensati on in his feet. - HEENT: Has a pending audiology appoint ment. Physical Exam General: Well developed, well nourished, in no acute distress. Appears stated age. Head: Normocephalic, atraumatic. Eyes: Pupils are equal, round and reactive to light and accommodation. Conjunctivae are clear. Vision grossly normal. Neck: Supple, no adenopathy or thyromegaly. Lungs: Clear to auscultation bilaterally. No rales, rhonchi or wheeze noted. Good air flow in all gary. Heart: Regular rate and rhythm. No murmurs, click, rubs or gallops are noted. EKG shows normal sinus rhythm. Abdomen: Bowel sounds present in all quadrants. The abdomen is soft, nontender, with no masses or organomegaly noted. Ventral hernia present Pulses: Peripheral pulses are equal and palpable bilaterally. Extremities: No clubbing, cyanosis nor edema is noted. Gouty/arthritic changes to bilat great toes. Normal monofilament bilat, abnormal vibratory sensation bilat L>R, hairless 1/2 way down, + varicose veins, skin intact, trace edema L>R Neurologic: Gait and station normal. Cranial Nerves 2-12 intact. Motor strength grossly symmetrical and intact. No sensory loss. Balance normal. Skin: No rashes, ulcers, or lesions noted. Turgor is good. Skin color is good. Hair and nails are without abnormalities. Several moles and age spots noted on trunk. Psych: Normal eye contact, affect and mood appropriate, and normal interactions. Patient is alert and appropriate to context. Results - Labs: A1c today is 6.5%. Other labs pending Medical Decision Making The patient is a 74-year-old male here for a routine follow-up of his chronic conditions. His type 2 diabetes has shown significant improvement, with his A1c decreasing from a prior 8.7% to 6.5% on metformin 1000 mg daily. This glycemic control is likely contributing to the reported improvement in foot sensation. Given the effectiveness, we will continue the current metformin dose and send a refill. The patient's report of greasy stools, though improving, warrants investigation to rule out malabsorption, despite the absence of abdominal pain. Stool studies will be ordered for further evaluation. His low back pain, characterized as walking arthritis, is managed with occasional Aleve. Additional labs will be ordered to ensure no other underlying processes are contributing. The patient requires a pre-operative clearance for a dental procedure involving multiple extractions. Given his stable condition and improved diabetes control, he is cleared for surgery, and the necessary paperwork will be amended and provided to him. Finally, a message has been sent to the audiology department to facilitate scheduling his overdue hearing exam. Plan 1. Type 2 Diabetes Mellitus - The patient's A1c has improved to 6.5% , and the current management is effective. - Continue metformin 1000 mg daily. - A refill for metformin will be sent to [facility]. 2. Steatorrhea - The patient reports improving but pers istent greasy stools. - Stool studies will be ordered to inves tigate for potential malabsorption. - The patient will receive a collection kit from the lab when he gets his blood work done. 3. Low Back Pain - The patient manages his intermittent b ack pain with as-needed Aleve. - Additional labs will be ordered to shawna faith out other underlying causes. 4. 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 - Audiology Referral: A message was sent to the audiology department to contact the patient to schedule his hearing exam. - Follow-up: The patient will return for a follow-up visit in approximately 6 months. Patient Instructions - Continue taking your metformin 1000 mg daily as prescribed. A refill has been sent to your pharmacy. - Please go to the lab to get your blood work done. - At the lab, you will get a kit to maritza ect stool samples at home. Please collect the samples and bring them back to the lab. - You are approved for your dental surge ry. You can cherry picker operator the clearance letter from the first front ventilator at our office. - The audiology (hearing) department michelle meyer be calling you to schedule an appointment. - Schedule a follow-up appointment in out 5 months. Consent Patient was informed and verbally consented to the use of an ambient scribe for clinic note documentation during this visit. Total time spent caring for the patient today was 40 minutes. This includes time spent before the visit reviewing the chart, time spent during the visit, and time spent after the visit on documentation, reviewing laboratory results, diagnostic imaging, medications, performing a medically necessary evaluation, counseling on diagnoses, care coordination, ordering appropriate tests, ordering appropriate medications, review of tests performed by other providers, reporting test results with the patient, communication with other healthcare providers. [facility] Medical History (Updated 10/04/25 @ 14:36 by Pennie Olsen [facility]) Arthritis Diabetes Edema No pertinent family history Swelling Surgical History (Updated 04/05/25 @ 11:17 by Tanja Hoskins MA) Hx of colonoscopy (~2018) No pertinent past surgical history Social History (Updated 04/05/25 @ 11:17 by Tanja Hoskins MA) Household Members: Spouse Both parents involved: No Caregiver staying overnight: No Housing: House Are you a primary critical care physician to a significant other at home: Yes Do you presently have visiting nurse or other home services: No 75 years or older and lives alone: No Alcohol intake: current Alcohol intake frequency: a few times a month Patient Tobacco Use Status: Never used Tobacco e-Cigarette/Vaping Use: Never Used Second Hand Smoke Exposure: No Substance Use Type: Marijuana service: No Current occupational status: retired Current occupational exposures/hazards: No Cognitive needs: No Hearing needs: No Vision needs: Yes (wear glasses) Questionnaire Thrive Questionnaire Date Thrive assessed: 04/05/25 I am a: Patient What is your living situation today?: I have a steady place to live Within the past 12 months, did the food you bought not last and you didn't have the money to get more?: Never true Within the past 12 months, did you worry whether your food would run out before you got money to buy more?: Never true Do you have trouble paying for medicines?: No Do you have trouble getting transportation to medical appointments?: No Do you have trouble paying your heating and electricity bill?: Yes Do you have trouble taking care of your child, family member or friend?: Yes Do you have trouble with day-to-day activities such as bathing, preparing meals, shopping, managing finances, etc.?: No Are you currently unemployed and looking for a job?: No Are you interested in more education?: No Please select the resources that you would like help with: Utilities Currently or been in a relationship where the following occur: No concerns reported THRIVE Score: 1 GENE-7 AMB Questionnaire GENE-7 Date GENE - 7 assessed: 04/05/25 Source: Developed by Drs. Ruben Parikh, Qian Mcmahan, Del Hilton and colleagues, with an educational gretchen from [employer]. Physical exam (Primary Care) Vital Signs: Last Vital Signs Temp 97.1 F 10/04/25 13:53 Pulse 56 10/04/25 13:53 Resp 13 10/04/25 13:53 BP 138/78 10/04/25 13:53 Pulse Ox 99 10/04/25 13:53 Oxygen Delivery Method Room Air 10/04/25 13:53 BMI result Body Mass Index 32.5 Tobacco/Smoking Status: Tobacco use Status Tobacco use date assessed 10/04/25 10/04/25 13:46 Patient Tobacco Use Status Never used Tobacco 10/04/25 13:45 e-Cigarette/Vaping Use Never Used 10/04/25 13:45 Thrive Assessment: Date of Thrive Assessment Date Thrive assessed 04/05/25 10/04/25 13:45 Currently or been in a relationship where the following occur: No concerns reported Results AMB Hemoglobin A1c AMB Hemoglobin A1c 6.5 % Last Edit by Tanja Hoskins MA on 10/04/25 14:04 Results Reviewed Results Reviewed: Laboratory Last Values Hgb A1c (Clinic) 6.5 % (4.0-6.0) H 10/04/25 13:57 Coding Level of Care Code Est Pt Level 5 (86746) Add On Problem Visit Only Diagnoses Diabetes mellitus type 2 with complications E11.8 Fatty stools K90.9 Bilateral sciatica M54.31; M54.32 Bilateral hearing loss, unspecified hearing loss type H91.93 Hearing loss type: unspecified Laterality: bilateral Diabetic eye exam Z01.00; E11.9 Nonproliferative diabetic retinopathy E11.3299 Stage 3a chronic kidney disease due to type 2 diabetes mellitus E11.22; N18.31 Assessment & Plan Assessment & Plan (1) Diabetes mellitus type 2 with complications: Comment: ckd & retinopathy Code(s): E11.8 - Type 2 diabetes mellitus with unspecified complications Category: Medical (2) Fatty stools: Code(s): K90.9 - Intestinal malabsorption, unspecified Category: Medical (3) Bilateral sciatica: Code(s): M54.31 - Sciatica, right side; M54.32 - Sciatica, left side Category: Medical (4) Hearing loss: Code(s): H91.90 - Unspecified hearing loss, unspecified ear Category: Medical Qualifiers: Hearing loss type: unspecified Laterality: bilateral Qualified Code(s): H91.93 - Unspecified hearing loss, bilateral (5) Diabetic eye exam: Onset Date: ~05/11/25 Comment: DM Eye 05/11/25 No retinopathy Code(s): Z01.00 - Encounter for examination of eyes and vision without abnormal findings; E11.9 - Type 2 diabetes mellitus without complications Category: Medical (6) Nonproliferative diabetic retinopathy: Comment: dm eye exam 07/21/24 bilat + macular edema, cataracts [facility] Code(s): E11.3299 - Type 2 diabetes mellitus with mild nonproliferative diabetic retinopathy without macular edema, unspecified eye Category: Medical (7) Stage 3a chronic kidney disease due to type 2 diabetes mellitus: Code(s): E11.22 - Type 2 diabetes mellitus with diabetic chronic kidney disease; N18.31 - Chronic kidney disease, stage 3a Category: Medical Plan . Orders: Orders Fecal Fat Qualitative Today K90.9 - Intestinal malabsorption, unspecified Amylase Today K90.9 - Intestinal malabsorption, unspecified, M54.31 - Sciatica, right side, M54.32 - Sciatica, left side Lipase Today K90.9 - Intestinal malabsorption, unspecified, M54.31 - Sciatica, right side, M54.32 - Sciatica, left side AMB Hemoglobin A1c Today E11.8 - Type 2 diabetes mellitus with unspecified complications GI Panel Today K90.9 - Intestinal malabsorption, unspecified OBSX3 Today K90.9 - Intestinal malabsorption, unspecified HLA B27 Today K90.9 - Intestinal malabsorption, unspecified, M54.31 - Sciatica, right side, M54.32 - Sciatica, left side Medications: Refilled metformin ER 1,000 mg (2 x 500 mg) PO DAILY 180 tabs 1RF
[2025-10-04 13:53] VITALS: BP 138/78; PULSE 56; RESP 13; TEMP 36.2; O2SAT 99; BMI 32.5
--- OUTSIDE RECORDS SUMMARY | 2025-10-04 17:08 | XMS_ITS | Clinical Summary ---
Author Organization [facility] [place] [address] Phone Care Team Providers Care Arabic Professor Name Role Phone Zachery Dowling MD Primary Care Provider [phone] Allergies No known active allergies Medications naproxen sodium 220 mg capsule Take 1 Tab by mouth every morning. Active aspirin 81 mg EC tablet Take 1 tablet (81 mg total) by mouth daily. Active hydroxyurea (HYDREA) 500 mg capsule TAKE 2 CAPSULES BY MOUTH DAILY WITH FOOD ON SATURDAY,, SATURDAY. ONLY TAKE 1 TAKE ONE CAPSULE ON SATURDAY, SATURDAY,SAT AND SATURDAY 128 capsule 1 5 026 Active hydroxyurea (HYDREA) 500 mg capsule TAKE 2 CAPSULES BY MOUTH DAILY WITH FOOD ON SATURDAY,, SATURDAY. 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/23/2019 Thrombocytosis 03/12/2018 Resolved Problems Problem Noted Date Diagnosed Date Resolved Date Diabetic neuropathy 04/04/2018 09/18/20 24 Tick bite 04/04/2018 09/18/2024 Overview (09/07/2024): history DM (diabetes mellitus), type 2 with neurological complications 03/12/2018 09/18/2024 Neutrophilia 03/12/2018 09/18/2024 Polycythemia 03/12/2018 09/18/2024 Encounters Date Type Department Care Team Description 07/27/2025 1:30 PM EDT Office Visit [facility] Hematology Oncology [address] [place] [address] Shahram Rondon MD Essential thrombocytosis ([facility] V24, [facility] V28) (Primary Dx) from Last 3 Months Medical History Medical History Date Comments Polycythemia 03/12/2018 DX:Polycythemia Neutrophilia 03/12/2018 DX:Neutrophilia Thrombocytosis 03/12/2018 DX:Thrombocytosi s DM (diabetes mellitus), type 2 with neurological complications ([facility] V24, [facility] V28) 03/12/2018 DX:DM (diabetes mellitus), t ype 2 with neurological complications (HCC) Diabetic neuropathy ([facility] V24, [facility] V28) 04/04/2018 DX:Diabetic neuropathy (HCC) Tick bite 04/04/2018 DX:Tick bite; CO MMENT: history Diabetic neuropathy ([facility] V24, [facility] V28) 04/04/2018 DX:Diabetic neuropathy ([facility]) DM (diabetes mellitus), type 2 with neurological complications ([facility] V24, [facility] V28) 03/12/2018 DX:DM (diabetes mellitus), t ype [...] on file Sexual Orientation Not on file Last Filed Vital Signs Vital Sign Reading Time Taken Comments Blood Pressure 140/66 07/27/2025 1:34 PM EDT Pulse 66 07/27/2025 1:34 PM EDT Temperature 36.1 C (97 F) 07/27/2025 1:34 PM EDT Respiratory Rate - - Oxygen Saturation 99% 07/27/2025 1:34 PM EDT Inhaled Oxygen Concentration - - Weight 110 kg (242 lb) 07/27/2025 1:34 PM EDT Height 188 cm (6' 2 ) 07/27/2025 1:34 PM EDT Body Mass Index 31.07 07/27/2025 1:34 PM EDT Plan of Treatment Upcoming Encounters Date Type Department Care Team (Late st Contact Info) Description 10/26/2025 1:30 PM EST Office Visit [facility] Hematology Oncology [address] [place] [address] Shahram Rondon MD [address] [place] [address] Health Maintenance Due Date Last Done Comments Colorectal Cancer Screening: Colonoscopy 1952 Zoster Vaccines (1 of 2) 1971 Pneumococcal Vaccine: 50+ Years (1 of 1 - PCV) 2002 RSV Immunization Adult Patients (1 - Risk 50-74 years 1-dose series) 2002 Abdominal Aortic Aneurysm (AAA) Screen 09/11/2022 Cholesterol Screening (Lipid Panel) 09/11/2022 Falls Risk Assessment 09/11/2022 Hepatitis C Screening 09/11/2022 Medicare Annual Wellness Visit 09/11/2022 Social Influencers of Health Screening 09/11/2022 Depression Screening 10/14/2024 COVID-19 Vaccine (4 - 2024-2 6 season) 2025 10/02/2021, 02/17/2021, 01/27/2021 Influenza Vaccine (#1) 2025 DTaP,Tdap,and Td Vaccines (2 - Td or [...] Diagnosis Comments CBC WITH AUTO DIFFERENTIAL Routine 07/23/2025 2:04 PM EDT Essential thrombocytosis ([facility] V24, [facility] V28) CBC AND DIFFERENTIAL Routine 07/23/2025 2:04 PM EDT Essential thrombocytosis ([facility] V24, [facility] V28) from Last 3 Months Results * (ABNORMAL) CBC auto differential (07/23/2025 2:04 PM EDT) WBC 12.2(H) 4.8 - 10.8 K/mcL LAB HEMETOLOGY METHOD 07/23/2025 4:42 PM [facility] RBC 3.30(L) 4.50 - 5.50 M/mcL LAB HEMETOLOGY METHOD 07/23/2025 4:42 PM [facility] Hemoglobin 11.6(L) 13.5 - 17.5 g/dL LAB HEMETOLOGY METHOD 07/23/2025 4:42 PM [facility] Hematocrit 34.5(L) 42.0 - 54.0 % LAB HEMETOLOGY METHOD 07/23/2025 4:42 PM [facility] MCV 103.3(H) 79.0 - 98.0 FL LAB HEMETOLOGY METHOD 07/23/2025 4:42 PM [facility] MCH 34.7(H) 27.0 - 32.0 pcg LAB HEMETOLOGY METHOD 07/23/2025 4:42 PM [facility] MCHC 33.6 32.0 - 37.0 g/dL LAB HEMETOLOGY METHOD 07/23/2025 4:42 PM EDT [facility] RDW 14.6 11.0 - 15.0 % LAB HEMETOLOGY METHOD 07/23/2025 4:42 PM [facility] Platelets 507(H) 130 - 400 K/mcL LAB HEMETOLOGY METHOD 07/23/2025 4:42 PM [facility] MPV 10.2 7.0 - 11.0 FL LAB HEMETOLOGY METHOD 07/23/2025 4:42 PM EDT [facility] NRBC 0.0 <1.0 % LAB HEMETOLOGY METHOD 07/23/2025 4:42 PM [facility] NRBC Absolute 0.00 <0.10 K/mcL LAB HEMETOLOGY METHOD 07/23/2025 4:42 PM [facility] Neutrophils Relative 66.9 % LAB HEMETOLOGY METHOD 07/23/2025 4:42 PM [facility] Lymphocytes Relative 17.5 % LAB HEMETOLOGY METHOD 07/23/2025 4:42 PM [facility] Monocytes Relative 7.6 % LAB HEMETOLOGY METHOD 07/23/2025 4:42 PM [facility] Eosinophils Relative 3.4 % LAB HEMETOLOGY METHOD 07/23/2025 4:42 PM [facility] Basophils Relative 1.6 % LAB HEMETOLOGY METHOD 07/23/2025 4:42 PM [facility] Immature Granulocytes Relative 3.0 % LAB HEMETOLOGY METHOD 07/23/2025 4:42 PM [facility] Neutrophils Absolute 8.14(H) 1.50 - 7.00 K/mcL LAB HEMETOLOGY METHOD 07/23/2025 4:42 PM [facility] Lymphocytes Absolute 2.14 1.00 - 5.00 K/mcL LAB HEMETOLOGY METHOD 07/23/2025 4:42 PM EDT [facility] Monocytes Absolute 0.93 0.20 - 1.00 K/mcL LAB HEMETOLOGY METHOD 07/23/2025 4:42 PM EDT [facility] Eosinophils Absolute 0.42 0.00 - 0.50 K/[facility] LAB HEMETOLOGY METHOD 07/23/2025 4:42 PM EDT [facility] Basophils Absolute 0.20 0.00 - 0.20 K/mcL LAB HEMETOLOGY METHOD 07/23/2025 4:42 PM EDT [facility] Immature Granulocytes Absolute 0.37(H) 0.00 - 0.03 K/[facility] LAB HEMETOLOGY METHOD 07/23/2025 4:42 PM EDT [facility] Blood Venous blood specimen / Unknown Venipuncture / Unknown 07/23/2025 2:04 PM EDT 07/23/2025 4:30 PM EDT us hSahram Rondon MD LAB BLOOD ORDERABLES Final Result [facility] [address] [place] [address], from Last 3 Months Insurance MEDICAID - [place] [facility] MEDICARE [employer]AGE Care Teams Arabic Professor Relationship Specialty Start Date End Date Zachery Dowling MD [address] [place] [address] [phone] PCP - General Internal Medicine 02/26/18
--- OUTSIDE RECORDS SUMMARY | 2025-10-04 17:08 | XMS_ITS | Clinical Summary ---
Author Organization [facility] Prior to 03/13/[address] [place] [address] Care Team Providers Care Nailer Hand Name Role Phone Zachery Dowling MD Primary Care Provider [phone] Allergies No known active allergies Medications Medication [...] age to complete this topic Care Teams Nailer Hand Relationship Specialty Start Date End Date Zachery Dowling MD [address] [place] [phone] PCP - General Internal Medicine 11/09/19
== END 2025-10-04 14:31 | disposition home or self-care (01) ==
LOC: HO.HMCFM 13:42
PROVIDERS: PCP Nurse Practitioner Family; Visit Provider Nurse Practitioner Family
DX: E11.8 Type 2 diabetes mellitus with unspecified complications (principal); K90.9 Intestinal malabsorption, unspecified; M54.31 Sciatica, right side; M54.32 Sciatica, left side; H91.93 Unspecified hearing loss, bilateral; E11.3299 Type 2 diabetes mellitus with mild nonproliferative diabetic retinopathy without macular edema, unspecified eye; E11.22 Type 2 diabetes mellitus with diabetic chronic kidney disease; N18.31 Chronic kidney disease, stage 3a